=== PATIENT | male | born 1950 | race Caucasian/White ===

== ENCOUNTER → 2017-04-24 10:29 | Outpatient (CLI) | payer MEDICARE, OTHER | END | disposition home or self-care (01) | LOC: D.US 04-20 16:30 | DX: I65.23 Occlusion and stenosis of bilateral carotid arteries (principal) ==

== ENCOUNTER 2017-05-08 05:23 | Inpatient (IN) | payer MEDICARE, OTHER ==
[2017-05-07 11:57] LABS: HEMOGLOBIN 12.4 g/dL (13.5-17.5); MCV 90.3 fL (80.0-100.0); MEAN PLATELET VOLUME 9.6 fL (7.4-10.4); RBC 4.43 10x6/uL (4.20-6.10); RDW 16.2 % (11.5-14.5); WBC 4.7 10x3/uL (4.8-10.8)
[2017-05-07 12:05] LABS: APPEARANCE CLEAR (CLEAR); BILIRUBIN NEGATIVE (NEGATIVE); COLOR STRAW (YELLOW); GLUCOSE NEGATIVE (NEGATIVE); KETONE NEGATIVE (NEGATIVE); NITRITE NEGATIVE (NEGATIVE); PROTEIN NEGATIVE (NEGATIVE); UROBILINOGEN NORMAL (NORMAL)
[2017-05-07 12:08] LABS: APTT 26.8 SECONDS (22.8-39.4); INR 0.95 (0.85-1.17); PROTIME 12.5 SECONDS (11.6-15.0)
[2017-05-07 12:12] LABS: ALBUMIN 3.5 g/dL (3.4-5.0); BILIRUBIN - TOTAL 0.27 mg/dL (0.2-1.3); CALCIUM 9.1 mg/dL (8.5-10.1); CREATININE - SERUM 1.4 mg/dL (0.6-1.3); PROTEIN - SERUM 7.8 g/dL (6.4-8.2)
[2017-05-08] VITALS (40 sets, daily range): BP systolic 96–182; BP diastolic 41–87; BMI 24.0; BMI 27.2
[~2017-05-08 05:23] MED LIST: BYSTOLIC20 MG PO; KLONOPIN1 MG PO; NORVASC10 MG PO
--- NOTE | 2017-05-08 11:31 | NUR ---
PT ARRIVED BY BED FROM OR. SWITCHED TO ICU MONITORS. PT ON 10L SIMPLE MASK. C/O LEFT SIDE PAIN. DR. PERRY AT BEDSIDE. REPORTS EPIDURAL NOT IN PROPER SPOT. WILL REPLACE. BILATERAL SCDS/TEDS IN PLACE. PT ON AIR OVERLAY MATTRESS. RIGHT RADIAL A-LINE ZERO'D WITH GOOD WAVEFORM. LEFT CT X2 TO 20CM SUCTION. NO AIR LEAK NOTED AT THIS TIME. YOUSIF CATH IN PLACE. CRITICOR TEMP 35.1. BARIHUGGER PLACED ON PT AND ON.
--- NOTE | 2017-05-08 11:37 | HP ---
PATIENT: ARMIDA LINDA MEDICAL RECORD: [id number] ACCOUNT: [id number] LOCATION:[facility]05 : 50 ADMISSION DATE: 05/08/17 HISTORY AND PHYSICAL EXAMINATION ARMIDA Bates (66yo, M) ID# [id number]. Date/Time04/20/2017 01:30RNTQW77/05/1951Service Dept.NPP_[facility] ClinicProviderEDPANCHO EASON MDInsuranceMed Primary: [place] Insurance # : [id number] Employer Name : RETIRED Med Secondary: FOR LIFE ( - MEDICARE SUPPLEMENT) Insurance # : [id number] Employer Name : RETIRED Prescription: ESI1 - Member is eligible. Chief Complaint Lung cancer JATINDER lung lesion Patient's Care Team Referring Provider: CARRI KAHN MD: [address] [place] [address], , Sales Recruiter: Josef WESTON MD: [address], [place] [address], , Primary Care Provider: MCKENZIE BAY MD: [address] [address], , Vitals BP:150/70 sitting L arm 04/20/2017 01:25 pmHR:60R/R 04/20/2017 01:25 pmHt:5 ft 8 in 04/20/2017 01:25 pmWt:143 lbs 04/20/2017 01:23 pmBMI:21.7 04/20/2017 01:25 pmAllergies Reviewed Allergies NKDAMedications Reviewed Medications amLODIPine 10 mg giqteu27/22/17 filledMEDCOamLODIPine 5 mg akeytn10/29/17 filledMEDCOamoxicillin 500 mg xdxhosg08/29/16 filledMEDCOAzor 5 mg-40 mg ilvdhg82/04/17 filledMEDCObenazepril 40 mg blkvhi33/22/17 filledMEDCOBenicar 40 mg czdycw46/06/17 filledMEDCOBystolic 20 mg ilsacf30/24/17 filledMEDCOcitalopram 20 mg unbzlj07/10/17 filledMEDCOclonazePAM 1 mg /31/17 filledMEDCOcloNIDine 0.1 mg/24 hr weekly transdermal patch01/29/17 filledMEDCOcloNIDine HCl 0.1 mg /15/17 filledMEDCOEnstilar 0.005 %-0.064 % topical foam01/15/17 filledMEDCOEry-Tab 250 mg tablet,delayed /27/17 filledMEDCOfinasteride 5 mg ztskyb10/20/17 filledMEDCOfluocinonide 0.05 % topical cream03/29/17 filledMEDCOfolic acid 1 mg qzovuz25/01/17 filledMEDCOhydroCHLOROthiazide 12.5 mg getjks21/13/17 filledMEDCOhydroCHLOROthiazid e 25 mg nmwsvi83/22/17 filledMEDCOHYDROcodone 5 mg-acetaminophen 325 mg uxfkos97/29/16 filledMEDCOhydrOXYzine HCl 10 mg /01/17 filledMEDCOhydrOXYzine HCl 50 mg ogcjxd64/31/17 filledMEDCOketoconazole 2 % topical cream10/10/16 filledMEDCOmetFORMIN 500 mg /30/17 filledMEDCOmetHOTREXate sodium 2.5 mg knkuga41/01/17 filledMEDCOomeprazole 20 mg capsule,delayed lluufyy13/06/17 filledMEDCOpravastatin 40 mg vgtnyj93/13/17 filledMEDCOpredniSONE 20 mg /06/17 filledMEDCOtamsulosin 0.4 mg pkmurfn84/20/17 filledMEDCOtriamcinolone acetonide 0.1 % topical cream02/21/17 filledMEDCOZetia 10 mg wuoqzb60/06/17 filledMEDCOProblems Reviewed Problems Carcinoma of lung - Onset: 04/18/2017 Family History HISTORY AND PHYSICAL [id number] ARMIDA LINDA Discussed Family History Social History Discussed Social History Cardiology Smoking Status: Former smoker High Cholesterol: Y High blood pressure: Y Is blood transfusion acceptable in an emergency?: Y Surgical History Reviewed Surgical History Past Medical History Discussed Past Medical History Cancer: Y Chest Pain: Y Hypertension: Y Kidney Disease: Y Kidney Failure: Y Documents for Discussion N/A Screening None recorded. HPI Dyspnea Reported by patient. Associated Symptoms: no chest pain; no palpitations; no orthopnea; no PND; no fever; no chills; no wheezing; no dietary indiscretion; no sputum production; no hemoptysis; no weight gain; no dyspepsia adenocarcinoma left upper lobe stage 2A ROS Patient reports weight loss (40 lbs) and exercise intolerance but reports no fever, no night sweats, and no significant weight gain. He reports no incontinence, no difficulty urinating, no hematuria, and no increased frequency; history of renal failure. He reports no dry eyes, no irritation, and no vision change. He reports no difficulty hearing and no ear pain. He reports no frequent nosebleeds and no nose/sinus problems. He reports no sore throat, no bleeding gums, no s noring, no dry mouth, no mouth ulcers, no oral abnormalities, and no teeth problems. He reports no jugular vein distension and no swollen glands. He reports no chest pain, no arm pain on exertion, no shortness of breath when walking, no shortness of breat h when lying down, no palpitations, and no known heart murmur. He reports no cough, no wheezing, no shortness of breath, and no coughing up blood. He reports no abdominal pain, no vomiting, normal appetite, no diarrhea, not vomiting blood, no nausea, and n o constipation. He reports no muscle aches, no muscle weakness, no arthralgias/joint pain, no back pain, and no swelling in the extremities. He reports no abnormal mole, no jaundice, and no rashes. He reports no loss of consciousness, no weakness, no numbn e ss, no seizures, no dizziness, and no headaches. He reports no depression, no sleep disturbances, feeling safe in relationship, and no alcohol abuse. He reports no fatigue. He reports no swollen glands and no bruising. He reports no runny nose, no sinus p ressure, no itching, no hives, and no frequent sneezing. ROS as noted in the HPI Physical Exam Patient is a 66-year-old male. HISTORY AND PHYSICAL [id number] ARMIDA LINDA Constitutional: General Appearance healthy-appearing and thin. Level of Distress NAD. Ambulation ambulating normally. Cardiovascular: Apical Impulse not displaced or no thrill. Heart Auscultation normal s1 and s2; no murmurs, rubs, or gallops; and RRR. Arterial Pulses no abdominal aorta bruits, femoral bruits, or popliteal bruits and 2+ bilateral, carotid 2+ bilateral, femoral 2+ b ilateral, popliteal 2+ bilateral, and dorsalis pedis 2+ bilateral. Edema no edema or varicosities. Lungs: Repiratory Effort no dyspnea. Percussion no hyperresonance or dullness or flatness. Auscultation no wheezing, rhonchi, or rales / crackles and breathing sounds normal, good air movement, and CTA except as noted. Abdomen: Bowl Sounds normal. Inspection and Palpation no tenderness, guarding, masses, or rebound tenderness and soft and non-distended. Liver non-tender and no hepatomegaly. Spleen non-tender and no splenomegaly. Hernia none palpable. Musculoskeletal System: Gait And Stance normal gait and stance. Digits and Nails normal nails and no cyanosis. Neurologic: Cranial Nerves grossly intact. Reflexes DTRs 2+ bilaterally throughout. Sensation grossly intact. Lymph Nodes: Lymph Nodes no cervical LAD, supraclavicular LAD, axillary LAD, or inguinal LAD. Eyes: Lids and Conjunctivae no discharge or pallor and non-injected. Pupils PERRLA. Cornea grossly intact. EOM EOMI. Lens clear. Sclerae non-icteric. Neck: Neck no masses, enlarged lymph nodes, or carotid bruits and supple and trachea midline. Thyroid no enlargement or nodules and non-tender. Skin: Inspection and Palpation no rash, lesions, ulcers, jaundice, or abnormal nevi. Assessment / Plan carcinoma left upper lobe 1. Carcinoma of lung C34.12: Malignant neoplasm of upper lobe, left bronchus or lung Discussion Notes carcinoma left upper lobe he would benefit from resection. I have discussed his disease process with him and his and his daught er in detail as well as the alternative methods of treatment we discussed left upper lobe resection as well as partial left lower lobe resection and mediastinal lymphadenectomy including the expected benefits and risk which included bleeding, infection, s troke, , and the imponderables. He understands all of the above and wishes to proceed with planned surgery this week ago. HISTORY AND PHYSICAL [id number] ARMIDA LINDA EDWARD MD at 1137 CC: [id number] DICTATION DATE: 04/20/17 1315 ACCOUNT DEVELOPMENT SPECIALIST: HARVEY 04/25/17 1453 ADM IN [facility] [address] [id number]
--- NOTE | 2017-05-08 11:37 | HP ---
PATIENT: ARMIDA LINDA MEDICAL RECORD: [id number] ACCOUNT: [id number] LOCATION:[facility]05 : 50 ADMISSION DATE: 05/08/17 HISTORY AND PHYSICAL EXAMINATION ARMIDA Bates (66yo, M) ID# [id number]. Date/Time05/07/2017 12:[id number] 1950ervice Dept.NPP_[place] [facility] ClinicProviderEDPANCHO EASON MDInsuranceMed Primary: [place] Insurance # : [id number] Employer Name : RETIRED Med Secondary: FOR LIFE ( - MEDICARE SUPPLEMENT) Insurance # : [id number] Employer Name : RETIRED Prescription: ESI1 - Member is eligible. Chief Complaint Followup: Carcinoma of lung Left pulmonary resection pre op visit Patient's Care Team Referring Provider: CARRI KAHN MD: [address] [place] [address], , Food Selector: Josef WESTON MD: [address] [address], , Primary Care Provider: MCKENZIE BAY MD: [address] [address], , Vitals BP:170/80 sitting R arm 05/07/2017 12:18 pmHR:60R/R 05/07/2017 12:18 pmHt:5 ft 8 in 05/07/2017 12:15 pmWt:143 lbs 05/07/2017 12:17 pmBMI:21.7 05/07/2017 12:17 pmAllergies Reviewed Allergies NKDAMedications Reviewed Medications amLODIPine 10 mg exzjfe72/27/17 filledMEDCOamLODIPine 5 mg vomtgh08/29/17 filledMEDCOamoxicillin 500 mg zqsktge05/29/16 filledMEDCOAzor 5 mg-40 mg xmbeua40/04/17 filledMEDCObenazepril 40 mg gpkpyk52/22/17 filledMEDCOBenicar 40 mg pkroml72/06/17 filledMEDCOBystolic 20 mg /24/17 filledMEDCOcitalopram 20 mg sabqrq81/10/17 filledMEDCOclonazePAM 1 mg pcrocv64/27/17 filledMEDCOcloNIDine 0.1 mg/24 hr weekly transdermal patch01/29/17 filledMEDCOcloNIDine HCl 0.1 mg /15/17 filledMEDCOEnstilar 0.005 %-0.064 % topical foam01/15/17 filledMEDCOEry-Tab 250 mg tablet,delayed jyhhzwt38/27/17 filledMEDCOfinasteride 5 mg hriopz34/20/17 filledMEDCOfluocinonide 0.05 % topical cream03/29/17 filledMEDCOfolic acid 1 mg xxcryu33/01/17 filledMEDCOhydroCHLOROthiazide 12.5 mg ulpagx20/13/17 filledMEDCOhydroCHLOROthiazid e 25 mg /22/17 filledMEDCOHYDROcodone 5 mg-acetaminophen 325 mg ytkcti89/29/16 filledMEDCOhydrOXYzine HCl 10 mg /01/17 filledMEDCOhydrOXYzine HCl 50 mg lafjtw24/31/17 filledMEDCOketoconazole 2 % topical cream10/10/16 filledMEDCOmetFORMIN 500 mg tysoan75/30/17 filledMEDCOmetHOTREXate sodium 2.5 mg xnfbdi61/01/17 filledMEDCOomeprazole 20 mg capsule,delayed eemxxho82/06/17 filledMEDCOpravastatin 40 mg redsao93/13/17 filledMEDCOpredniSONE 20 mg /06/17 filledMEDCOtamsulosin 0.4 mg /20/17 filledMEDCOtriamcinolone acetonide 0.1 % topical cream02/21/17 filledMEDCOZetia 10 mg hscynl62/06/17 filledMEDCOProblems Reviewed Problems Carcinoma of lung - Onset: 04/18/2017 Family History HISTORY AND PHYSICAL [id number] ARMIDA LINDA Discussed Family History Social History Discussed Social History Cardiology Smoking Status: Former smoker High Cholesterol: Y High blood pressure: Y Is blood transfusion acceptable in an emergency?: Y Surgical History Reviewed Surgical History Past Medical History Discussed Past Medical History Cancer: Y Chest Pain: Y Hypertension: Y Kidney Disease: Y Kidney Failure: Y Documents for Discussion N/A Screening None recorded. HPI Dyspnea Reported by patient. Associated Symptoms: no chest pain; no palpitations; no orthopnea; no PND; no fever; no chills; no wheezing; no dietary indiscretion; no sputum production; no hemoptysis; no weight gain; no dyspepsia carcinoma left upper lobe ROS Patient reports weight loss (40 lbs) and exercise intolerance but reports no fever, no night sweats, and no significant weight gain. He reports no incontinence, no difficulty urinating, no hematuria, and no increased frequency; history of renal failure. He reports no dry eyes, no irritation, and no vision change. He reports no difficulty hearing and no ear pain. He reports no frequent nosebleeds and no nose/sinus problems. He reports no sore throat, no bleeding gums, no snoring, no dry mouth, no mouth ulcers, no oral abnormalities, and no teeth problems. He reports no jugular vein distension and no swollen glands. He reports no chest pain, no arm pain on exertion, no shortness of breath when walking, no shortness of breath when lying d o wn, no palpitations, and no known heart murmur. He reports no cough, no wheezing, no shortness of breath, and no coughing up blood. He reports no abdominal pain, no vomiting, normal appetite, no diarrhea, not vomiting blood, no nausea, and no constipation . He reports no muscle aches, no muscle weakness, no arthralgias/joint pain, no back pain, and no swelling in the extremities. He reports no abnormal mole, no jaundice, and no rashes. He reports no loss of consciousness, no weakness, no numbness, no seizur e s, no dizziness, and no headaches. He reports no depression, no sleep disturbances, feeling safe in relationship, and no alcohol abuse. He reports no fatigue. He reports no swollen glands and no bruising. He reports no runny nose, no sinus pressure, no it neva, no hives, and no frequent sneezing. ROS as noted in the HPI Physical Exam Patient is a 66-year-old male. HISTORY AND PHYSICAL [id number] ARMIDA LINDA Constitutional: General Appearance healthy-appearing and thin. Level of Distress NAD. Ambulation ambulating normally. Cardiovascular: Apical I mpulse not displaced or no thrill. Heart Auscultation normal s1 and s2; no murmurs, rubs, or gallops; and RRR. Arterial Pulses no abdominal aorta bruits, femoral bruits, or popliteal bruits and 2+ bilateral, carotid 2+ bilateral, femoral 2+ bilateral, pop liteal 2+ bilateral, and dorsalis pedis 2+ bilateral. Edema no edema or varicosities. Lungs: Repiratory Effort no dyspnea. Percussion no hyperresonance or dullness or flatness. Auscultation no wheezing, rhonchi, or rales / crackles and breathing sounds normal, good air movement, and CTA except as noted. Abdomen: Bowl Sounds normal. Inspection and Palpation no tenderness, guarding, masses, or rebound tenderness and soft and non-distended. Liver non-tender and no hepatomegaly. Spleen non-tender and no splenomegaly. Hernia none palpable. Musculoskeletal System: Gait And Stance normal gait and stance. Digits and Nails normal nails and no cyanosis. Neurologic: Cranial Nerves grossly intact. Reflexes DTRs 2+ bilaterally throughout. Sensation grossly intact. Lymph Nodes: Lymph Nodes no cervical LAD, supraclavicular LAD, axillary LAD, or inguinal LAD. Eyes: Lids and Conjunctivae no discharge or pallor and non-injected. Pupils PERRLA. Cornea grossly intact. EOM EOMI. Lens clear. Sclerae non-icteric. Neck: Neck no masses, enlarged lymph nodes, or carotid bruits and supple and trachea midline. Thyroid no enlargement or nodules and non-tender. Skin: Inspection and Palpation no rash, lesions, ulcers, jaundice, or abnormal nevi. Assessment / Plan carcinoma left upper lobe 1. Carcinoma of lung C34.90: Malignant neoplasm of unspecified part of unspecified bronchus or lung Discussion Notes I have discussed the patient's disease process with him and his in detail as well as the alternative methods of treatmen t. We discussed left pulmonary resection and the expected benefits and risk which include bleeding, infection, stroke, , and the imponderables. He understands all of the above and wishes to proceed with planned surgery tomorrow. HISTORY AND PHYSICAL [id number] ARMIDA LINDA, JOHNNIE SARAH at 1137 CC: [id number] DICTATION DATE: 05/07/17 1200 RICE MILLING SUPERVISOR: HARVEY 05/07/17 1245 ADM IN [facility] [address] [id number]
--- NOTE | 2017-05-08 11:45 | NUR ---
DR. EASON UPDATED PT'S FAMILY.
--- NOTE | 2017-05-08 12:00 | NUR ---
RADIOLOGY AT BEDSIDE FOR PORT CXR.
--- NOTE | 2017-05-08 12:19 | NUR ---
DR. PERRY AT BEDSIDE. EPIDURAL REPLACED. PT TOLERATED WELL. BOLUS GIVEN BY DR. PERRY. EPIDURAL SECURED WITH TAPE BY DR. PERRY. PT ASSISTED BACK INTO BED.
--- NOTE | 2017-05-08 12:49 | NUR ---
FAMILY AT BEDSIDE. UPDATED ON PT'S STATUS. PT REPORTS THAT HIS PAIN IS IMPROVING.
--- NOTE | 2017-05-08 14:40 | NUR ---
PT DENIES PAIN AT THIS TIME. RESTING COMFORTABLY
--- NOTE | 2017-05-08 14:53 | NUR ---
NOTIFIED SUNITA CHO RN OF DEC URINE OUTPUT. PT HAS HX OF STAGE II KIDNEY DISEASE. K+ 6.6 ON ABG RESULTS. BMP DRAWN AND SENT DOWN TO LAB.
[2017-05-08 15:11] LABS: ANION GAP 13.8 mmol/L (8-16); CALCIUM 7.9 mg/dL (8.5-10.1); CARBON DIOXIDE 19.3 mmol/L (21.0-32.0)
[2017-05-08 15:15] LABS: CREATININE - SERUM 1.8 mg/dL (0.6-1.3)
[2017-05-08 15:17] LABS: POTASSIUM - SERUM 7.1 mmol/L (3.5-5.1)
--- NOTE | 2017-05-08 15:31 | NUR ---
CHANGED FROM PLASMALYTE IVF TO NS AT 30CC/HR. SUNITA CHO RN NOTIFIED OF UPDATED LABS.
--- NOTE | 2017-05-08 17:48 | NUR ---
DR. EASON NOTIFIED OF CRITICAL K+ OF 6.9. ORDERS RECEIVED.
--- NOTE | 2017-05-08 18:00 | NUR ---
SPOKE WITH DR. HERNANDEZ REGARDING CONSULT. DISCUSSED LABS AND VITAL SIGNS. ORDERS RECEIVED.
--- NOTE | 2017-05-08 19:00 | NUR ---
REC'D TO CARE, DR. HERNANDEZ AT BS. GROUP COUNSELOR PER FLOWSHEET. PT AWAKE AND ORIENTED. L CHEST INCISION AND CTS NOTED. REPORTS ADEQUATE PAIN RELIEF WITH EPIDURAL - SEE FLOWSHEET. ARPIT THAKKAR ON. IVFS INFUSING TO L DLSC, DSG C/D/I - SEE FLOWSHEET. CRITICORE BENJA PATENT. AIR OVERLAY IN USE. ALARMS ON AND C/L IN REACH.
--- NOTE | 2017-05-08 20:30 | NUR ---
DR. HERNANDEZ AND DR. EASON NOTIFIED OF [facility]+. NEW ORDERS REC'D.
--- NOTE | 2017-05-08 20:40 | NUR ---
ADMIN REG INSULIN AND D50 IV PER MD ORDERS. PT TURNED TO R SIDE, GOOD DB & C. PT COOPERATIVE, GIVEN SWABS FOR ORAL CARE. ALARMS ON AND C/L IN REACH.
--- NOTE | 2017-05-08 21:20 | NUR ---
NO VISITORS, RESTING QUIETLY, VSS
--- NOTE | 2017-05-08 23:26 | NUR ---
ABGS RESULTED, K+ 5.8 - D50 AND REG INSULIN IV REPEATED PER MD ORDER - SEE MAR. REASSESSMENT PER FLOWSHEET, NO ACUTE CHANGES. PT WITH SLIGHT CONFUSION TO TIME/SITUATION - EASILY REORIENTED. VSS. DENIES PAIN. CONT SWABS FOR ORAL CARE. C/L IN REACH. ALARMS ON.
[2017-05-09] VITALS (90 sets, daily range): BP systolic 116–170; BP diastolic 51–92; BMI 27.1
--- NOTE | 2017-05-09 01:50 | NUR ---
NITRO GTT INITIATED PER MD ORDERS. PT DENIES PAIN.
--- NOTE | 2017-05-09 03:15 | NUR ---
ABGS RESULTED K+ 4.8, REASSESSMENT PER FLOWSHEET, NO ACUTE CHANGES. PT LESS CONFUSED, COOPERATIVE. PULLING 1500 ON I.S. WITH GOOD COUGH.
[2017-05-09 06:05] LABS: HEMATOCRIT 32.7 % (42.0-54.0); HEMOGLOBIN 10.2 g/dL (13.5-17.5); MCH 28.5 pg (26.0-34.0); MCHC 31.2 g/dL (31.0-37.0); MCV 91.3 fL (80.0-100.0); MEAN PLATELET VOLUME 9.5 fL (7.4-10.4); RBC 3.58 10x6/uL (4.20-6.10); RDW 16.5 % (11.5-14.5)
[2017-05-09 06:09] LABS: WBC 7.4 10x3/uL (4.8-10.8)
[2017-05-09 06:34] LABS: ALBUMIN 2.7 g/dL (3.4-5.0); BILIRUBIN - TOTAL 0.32 mg/dL (0.2-1.3); CALCIUM 7.9 mg/dL (8.5-10.1); CARBON DIOXIDE 19.6 mmol/L (21.0-32.0); CREATININE - SERUM 1.8 mg/dL (0.6-1.3); PROTEIN - SERUM 6.1 g/dL (6.4-8.2)
[2017-05-09 06:35] LABS: ANION GAP 15.3 mmol/L (8-16); POTASSIUM - SERUM 4.9 mmol/L (3.5-5.1)
--- NOTE | 2017-05-09 07:20 | NUR ---
RECEIVED PT FOR CARE. PT RESTING IN BED WITH EYES OPEN. CALL LIGHT WITHIN REACH. ASSESSMENT COMPLETED. REPOSITIONED FOR COMFORT.
--- NOTE | 2017-05-09 08:07 | NUR ---
DR. EASON AT BEDSIDE. UPDATED ON PT'S STATUS.
--- NOTE | 2017-05-09 10:30 | NUR ---
PT WATCHING TELEVISION. NO NEEDS AT THIS TIME. PULLING 2000 ON INCENTIVE SPIROMETER.
--- NOTE | 2017-05-09 12:45 | NUR ---
PT RESTING IN BED WITH EYES CLOSED. RESP EQUAL AND UNLABORED. CALL LIGHT AND EPIDURAL ATTENDANT SELF SERVICE [employer] WITHIN REACH.
--- NOTE | 2017-05-09 15:24 | NUR ---
NOTIFIED DR. EASON OF PT'S INCREASE IN AGGITATION. PULLING AT IV LINES AND ALL TUBING. NOT COOPERATIVE. KEEPS ASKING TO GET OUT OF BED. UNABLE TO REORIENT PT TO SITUATION.
--- NOTE | 2017-05-09 15:40 | NUR ---
HALDOL GIVEN ORDERED. PT CONTINUES TO PULL AT LINES/TUBING. CALLED AND NOTIFIED PT'S OF INCREASED AGGIATATION AND CONFUSION. SHE VOICED UNDERSTANDING. SHE IS UNABLE TO COME AND VISIT UNTIL TOMORROW MORNING AT 9. SHE STATES SHE WILL CALL HIM ON HIS CELL PHONE.
--- NOTE | 2017-05-09 16:25 | NUR ---
PT MUCH MORE CALM AND COOPERATIVE. STATES "I SPOKE WITH MY AND SHE AGREES WITH YOU". VSS AT THIS TIME. WILL CONTINUE TO MONITOR.
--- NOTE | 2017-05-09 18:07 | NUR ---
PT SITTING UP IN BED EATING SUPPER TRAY. TOLERATING WELL.
--- NOTE | 2017-05-09 19:30 | NUR ---
REPORT REC'D AND CARE ASSUMED, REC'D PT ON O2 @ 2LITERS RESTING IN BED EYES CLOSED, AWAKENS TO VERBAL STIMULI, ORIENTED TO PERSON AND PLACE ONLY, CM-ST 106, LDLSCL DRSG CDI WITH D5NS @ 75CC/HR AND NITROGLYCERIN @ 10CC/HR OR 0.463MCG/KG/MIN, RIGHT RADIAL DONNY WITH FLEXION BOARD, LINES LEVELED AND ZEROED WITH RETURN OF APPROPRIATE WAVEFORM, LEFT LATERAL DRSG CDI, LEFT LATERAL CT'S X 2 TO 20CM H2O SUCTION, SEROUS DRAINAGE NOTED, NO AIR LEAK NOTED, EPIDURAL TAPED SECURELY TO BACK INFUSING @ 6CC/HR WITH 3CC Q15MIN BOLUS FOR BREAKTHROUGH PAIN, CRITICORE YOUSIF PATENT DRAINING CLEAR YELLOW URINE, TEDS AND SCDS OFF FOR BREAK, AIR OVERLAY MATTERSS IN USE, SR UP X 2, VISIBLE TO NURSES STATION.
--- NOTE | 2017-05-09 20:00 | NUR ---
DR. PERRY AT , DECREASED EPIDURAL RATE TO 4CC/HR WITH 3CC Q15MIN BOLUS AVAILABLE, PT PULLING OXYGEN AND OTHER MONITORING EQUIPMENT OFF, ATTEMPTED TO REORIENT TO SITUATION, STATES " I DON'T THINK I NEED TO GO THERE TONIGHT", REQUESTED PT NOT PULL AT EQUIPMENT, STATES "OKAY".
--- NOTE | 2017-05-09 20:40 | NUR ---
PT ATTEMPTING TO GET OOB, EXPLAINED TO PT THAT HE COULD NOT GET OOB AND WHY, REMINDED OF CURRENT SITUATION, ATTEMPTING TO PULL AT YOUSIF AND CT TUBING, MOVED LINES FROM PT'S REACH, NURSE POSITIONED OUTSIDE OF ROOM.
--- NOTE | 2017-05-09 23:05 | NUR ---
REASSESSMENT COMPLETED, PT REMAINS CONFUSED, DOZING AT INTERVALS, COUGHING AND DEEP BREATHING COMPLETED, PT PULLING 1500 ON IS, PRODUCTIVE COUGH OF WHITE SPUTUM, WILL CONTINUE TO MONITOR FOR CHANGES.
--- NOTE | 2017-05-09 23:30 | NUR ---
PT ATTEMPTING TO GET OOB, ARGUMENTATIVE AND UNCOOPERATIVE PULLING AT EQUIPMENT, STATING " I WANT OUT OF THIS BED", ATTEMPTED TO EXPLAIN TO PT THE REASON FOR NOT GETTING OOB AT THIS TIME, 5MG HALDOL GIVEN SLOW IVP FOR AGITATION.
[2017-05-10] VITALS (73 sets, daily range): BP systolic 111–176; BP diastolic 58–95
--- NOTE | 2017-05-10 00:19 | NUR ---
PT ATTEMPTING TO GET OOB, WANTING HIS UNDERWEAR, EXPLAINED TO PT WHY HE DID NOT HAVE UNDERWEAR, STATES " I HAVE THEM HERE SOMEWHERE GIVE THEM TO ME NOW", UNDERWEAR PROVIDED, EXPLAINED TO PT HE COULD NOT GET OOB TO PUT THEM ON, STATES " YOUR GIVING ME A BUNCH OF BULL DON'T TELL ME WHAT I CAN DO LADY!", ASSISTED PT TO PLACE UNDERWEAR, LINENS STRAIGHTENED, PT REQUESTING SOCKS, SCDS AND TEDS REAPPLIED, PT CALMER AT THIS TIME, REMOTE CONTROL PROVIDED FOR DIVERSION, WILL REMAIN OUTSIDE DOOR FOR CLOSER MONITORING.
--- NOTE | 2017-05-10 02:00 | NUR ---
PT RESTING IN BED EYES CLOSED, RESP EVEN AND UNLABORED, VSS, WILL CONT TO MONITOR FOR CHANGES
--- NOTE | 2017-05-10 03:15 | NUR ---
RT AT BS FOR BREATHING TX, IS DONE AFTERWARD, PT INHALING SHORT FAST BREATHS REQUIRES INSTRUCTION ON IS USAGE EACH TIME, PT ATTEMPTS TO BREATH TOO QUICKLY PT REDIRECTED AND PULLING [phone]
--- NOTE | 2017-05-10 03:40 | NUR ---
RADIOLOGY @ BS FOR AM CXR
--- NOTE | 2017-05-10 04:30 | NUR ---
LDLSCL DRSG CHANGED DUE TO DRSG LIFTING, PT TOLERATED WELL, PT STATES " I AM CONFUSED IS THIS HOSPICE IT LOOKS LIKE A HOUSE BUT IT'S A HOSPITAL", EXPLAINED TO PT THAT HE WAS IN CVICU AFTER HIS SURGERY, PT VERBALIZES UNDERSTANDING, PT MORE AGREEABLE THIS MORNING.
--- NOTE | 2017-05-10 05:13 | NUR ---
RT AT BS FOR CONSTANZA
--- NOTE | 2017-05-10 05:14 | NUR ---
RT AT BS FOR AM ABG, PT PROVIDED ICE WATER ON REQUEST, DENIES FURTHER NEEDS.
--- NOTE | 2017-05-10 05:45 | NUR ---
PT REPOSITIONED UP IN BED AND ONTO RIGHT SIDE SUPPORTED WITH PILLOWS, VSS.
[2017-05-10 05:53] LABS: HEMATOCRIT 29.2 % (42.0-54.0); HEMOGLOBIN 9.1 g/dL (13.5-17.5); MCH 28.5 pg (26.0-34.0); MCHC 31.2 g/dL (31.0-37.0); MCV 91.5 fL (80.0-100.0); MEAN PLATELET VOLUME 9.3 fL (7.4-10.4); RBC 3.19 10x6/uL (4.20-6.10); RDW 16.4 % (11.5-14.5); WBC 6.5 10x3/uL (4.8-10.8)
[2017-05-10 06:33] LABS: ALBUMIN 2.5 g/dL (3.4-5.0); ANION GAP 12.8 mmol/L (8-16); BILIRUBIN - TOTAL 0.28 mg/dL (0.2-1.3); CALCIUM 7.6 mg/dL (8.5-10.1); CARBON DIOXIDE 19.2 mmol/L (21.0-32.0); CREATININE - SERUM 1.6 mg/dL (0.6-1.3); PROTEIN - SERUM 5.7 g/dL (6.4-8.2)
--- NOTE | 2017-05-10 07:00 | NUR ---
ASSESSMENT PER FLOWSHEET. VOICES NO CO AT TIME. SR UP X 2.
--- NOTE | 2017-05-10 08:00 | NUR ---
SITTING UP IN BED EATING BREAKFAST NO CO AT TIME.
--- NOTE | 2017-05-10 09:30 | NUR ---
DONNY EDOUARD. BP MEASURED WITH NIBP.
--- NOTE | 2017-05-10 12:00 | NUR ---
EATING LUNCH NO CO AT TIME.
--- NOTE | 2017-05-10 15:00 | NUR ---
VISITING WITH FRIEND. VOICES NO CO AT TIME.
--- NOTE | 2017-05-10 17:00 | NUR ---
EATING SUPPER NO CO AT TIME.
--- NOTE | 2017-05-10 18:00 | NUR ---
VISITING WITH FRIENDS. VOICES NO CO AT TIME.
--- NOTE | 2017-05-10 19:00 | NUR ---
Received patient resting in bed with eyes open watching TV, assessment completed per flowsheet. Patient AO x4, calm and cooperative. Eyes PERRLA @ 4mm with brisk response, sclera is white. S1/S2 noted NSR with HR 91, rhythmic and regular. Breathing is even and unlabored on 3L via NC with O2 sat 97%, lung sounds clear R upper and mid with diminished L upper mid and bilateral lower. CT x2 to gravity drain with no bubbling noted in collection, dressing intact with small serous drainage noted on old pad. Abdomen is flat and soft with bowel sounds active x4, non-tender. Criticore mcguire secured, clear yellow urine noted in collection. Full ROM all extremities with slight weakness noted, all pulses palpable with cap refill < 3 sec. L subclavian CVL dressing CDI, D5W @ 30ml/hr and Nitro @ 0.463 mcg/kg/min (10ml). Epidural dressing intact, Fentanyl @ 4ml/hr continuous with 3ml Q15 lockout. Patient denies pain or other needs at this time, all VSS and will continue to monitor.
--- NOTE | 2017-05-10 21:00 | NUR ---
No visitors at this time, patient resting in bed with eyes closed. Breathing is even and unlabored on 3L via NC, O2 sat 95%. CT x2 dressing CDI, serous and serosanguinous drainage noted in collection. Patient denies pain or other needs at this time, all VSS and will continue to monitor.
--- NOTE | 2017-05-10 23:00 | NUR ---
Reassessment completed per flowsheet, patient resting in bed with eyes closed. Patient AO x4, calm and cooperative. S1/S2 noted NSR on telemetry with HR 97, rhythmic and regular. Breathing is even and unlabored on 3L via NC with O2 sat 96%, lung sounds clear R upper and mid with diminished L uppper and mid diminished bilateral lower. CT x2 L lateral chest dressing CDI, serosanguinous fluid noted in drain. All pulses palpable with cap refill < 3 sec, skin warm/dry to touch. Patient denies pain or other needs at this time, all VSS and will continue to monitor.
[2017-05-11] VITALS (56 sets, daily range): BP systolic 137–208; BP diastolic 69–99
--- NOTE | 2017-05-11 01:00 | NUR ---
Patient resting in bed with eyes open, water provided upon request. Education provided on cough/deep breathing and splinting. Patient returned demonstration, no other needs at this time.
--- NOTE | 2017-05-11 03:00 | NUR ---
Reassessment completed per flowsheet, patient resting in bed with eyes closed. Patient AO x4, calm and cooperative. S1/S2 noted NSR on telemetry with HR 98, rhythmic and regular. Breathing is even and unlabored on 3L via NC with O2 sat 97%, lung sounds clear R upper and mid with diminished L upper and mid and diminished bilateral lower. CT x2 dressing CDI, serosanguinous drainage noted in drain. All pules palpable with cap refill < 3 sec, skin warm/dry to touch. Patient denies pain or other needs at this time, all VSS and will continue to monitor.
--- NOTE | 2017-05-11 05:00 | NUR ---
Pateint resting in bed with eyes open, breathing is even and unlabored on 3l via NC. ct x2 L lateral chest dressing CDI, patient denies pain or other needs at this time. All VSS and will continue to monitor
[2017-05-11 06:26] LABS: HEMATOCRIT 29.9 % (42.0-54.0); HEMOGLOBIN 9.6 g/dL (13.5-17.5); MCH 28.6 pg (26.0-34.0); MCHC 32.1 g/dL (31.0-37.0); RBC 3.36 10x6/uL (4.20-6.10); RDW 15.6 % (11.5-14.5); WBC 6.4 10x3/uL (4.8-10.8)
[2017-05-11 06:56] LABS: ALBUMIN 2.5 g/dL (3.4-5.0); ALKALINE PHOSPHATASE 60 U/L (46-116); ALT (SGPT) 15 U/L (10-68); BILIRUBIN - TOTAL 0.36 mg/dL (0.2-1.3); CALCIUM 8.5 mg/dL (8.5-10.1); CARBON DIOXIDE 20.9 mmol/L (21.0-32.0); CHLORIDE - SERUM 104 mmol/L (98-107); GLUCOSE 117 mg/dL (74-106); POTASSIUM - SERUM 4.8 mmol/L (3.5-5.1); SODIUM 132 mmol/L (136-145); eGFR NON AFRICAN AMERICAN 79 mL/min (90-120)
[2017-05-11 06:58] LABS: CALC OSMOLALITY 267 mosm/kg (275-300); UREA NITROGEN 18 mg/dL (7-18)
--- NOTE | 2017-05-11 11:53 | NUR ---
Ameya COK[facility] NOTIFIED OF NIBP AT [facility] -NTG GTT AT 5ML/H-CURRENT BP DRUG REGIMEN AND REQUEST OF CARDIOVASCULAR MD TO BE OFF NTG GTT-ORDER RECIEVED AND NOTED-SR ON MOITOR 90-ROOM AIR PER RT
--- NOTE | 2017-05-11 14:16 | NUR ---
1330-YOUSIF CATH REMOVED-L CVL SALINE LOCKED-PER [id number] SOCKS PLACED-ASSISTED TO BEDSDIE CHAIR AND DIRECTED NOT TO GET UP WITHOUT ASSISTANCE-CALL LIGHT AND URINAL PLACED AT PT EASY REACH 1410-FOUND PT OFF MONITOR-IN BATHROOM-PT CALLED BACK OK 1420-PT EMERGED FROM RESTROOM WITH ALL CLOTHING ON --REORIENTED PT TO REMAIN IN HOSPITAL AND NOT BEING DISCHARGED TODAY-AGREED TO REMOVE TOP AND PLACE HOSPITAL GOWN ON FOR INTEGRITY OF OPEN INCISION-REMAINS ON ROOM AIR-NORCO 10MG PO FROM C/O INCISIONAL PAIN
--- NOTE | 2017-05-11 14:31 | NUR ---
1430-K MARQUIS LUTZ NOTIFIED OF CURRENT NIBP- D JOHN PAUL LUTZ RE NIBP 206 SYS-DR MAYKEL WALLACE'D REQUESTED TO MANAGE SAME
--- NOTE | 2017-05-11 14:41 | NUR ---
NUTRITION F/U CHART REVIEWED. SPOKE WITH NURSING. 100% INTAKE LUNCH. STILL NO BM. NURSING AWARE. RD FOLLOWING
--- NOTE | 2017-05-11 15:16 | NUR ---
NO RETURN CALL FROM DR BRAR-
--- NOTE | 2017-05-11 15:30 | NUR ---
RETURN CALL FROM DR BRAR-
--- NOTE | 2017-05-11 19:15 | NUR ---
RECEIVED CARE OF PT, ASSESSMENT PER FLOWSHEET. PT ALERT AND ORIENTED X 4, SITTING UP IN BED IN NO APPARENT DISTRESS WATCHING TV. HR SR ON CM, BREATH SOUNDS SHALLOW WITH DIM BASES AUSCULTATED, LT LAT INCISION CALVIN, LT LAT CHEST DRESSING CDI, PPP, PULLING CLOSE TO 2250 ON IS WITH GOOD INSPIRATORY EFFORT, DENIES ANY NEEDS AT THIS TIME, CALL LIGHT IN REACH, BED LOW, BED ALARM IN USE.
--- NOTE | 2017-05-11 20:11 | NUR ---
PT C/O INCISIONAL PAIN 5/10 ON PAIN SCALE, PRN PO NORCO 10/325 MG ADMINISTERED PER MD ORDER AND PT REQUEST. WILL MONITOR FOR DESIRED EFFECT.
--- NOTE | 2017-05-11 22:57 | NUR ---
RT AT BEDSIDE FOR BREATHING TX, PRN ZOFRAN 4MG ADMINISTERED VIA SIVP PER PT REQUEST REGARDING HIS UPDRAFT TREATMENTS MAKING HIM NAUSEOUS. WILL MONITOR.
[2017-05-12] VITALS (24 sets, daily range): BP systolic 141–171; BP diastolic 51–81
--- NOTE | 2017-05-12 00:04 | NUR ---
PRN HYDRALAZINE 20MG ADMINISTERED VIA SIVP FOR ELEVATED BP.
--- NOTE | 2017-05-12 01:03 | NUR ---
PT RESTING IN BED WITH EYES CLOSED, HR 83 ON CM, SBP WITHIN PARAMETERS, CONT POC.
--- NOTE | 2017-05-12 03:15 | NUR ---
REASSESSMENT PER FLOWSHEET, NO ACUTE CHANGES NOTED. ICE WATER PROVIDED PER PT REQUEST, WILL MONITOR.
--- NOTE | 2017-05-12 04:02 | NUR ---
BACK FROM RADIOLOGY FOR AM PA AND LAT CXR, CV MONITORS RE-ESTABLISHED, ASSISTED PT TO COMFORTABLE POSITION. C/O INCISIONAL PAIN 5/10 ON PAIN SCALE, PRN PO NORCO 10/325 MG ADMINISTERED PER PT REQUEST.
--- NOTE | 2017-05-12 05:15 | NUR ---
PT RESTING IN BED WITH EYES CLOSED, NO VISITORS PRESENT AT THIS TIME, WILL CONT TO MONITOR.
[2017-05-12 06:22] LABS: HEMATOCRIT 34.9 % (42.0-54.0); HEMOGLOBIN 11.1 g/dL (13.5-17.5); MCH 27.5 pg (26.0-34.0); MCHC 31.8 g/dL (31.0-37.0); MEAN PLATELET VOLUME 9.2 fL (7.4-10.4); RBC 4.03 10x6/uL (4.20-6.10); RDW 15.4 % (11.5-14.5)
[2017-05-12 06:23] LABS: MCV 86.6 fL (80.0-100.0)
[2017-05-12 06:41] LABS: ALBUMIN 2.5 g/dL (3.4-5.0); ANION GAP 14.9 mmol/L (8-16); BILIRUBIN - TOTAL 0.45 mg/dL (0.2-1.3); CALCIUM 8.5 mg/dL (8.5-10.1); PROTEIN - SERUM 6.3 g/dL (6.4-8.2)
[2017-05-12 06:42] LABS: CREATININE - SERUM 1.3 mg/dL (0.6-1.3); POTASSIUM - SERUM 3.9 mmol/L (3.5-5.1)
--- NOTE | 2017-05-12 07:18 | NUR ---
PRN PO NORCO 10/325 MG ADMINISTERED PER PT REQUEST FOR C/O INCISIONAL PAIN 12/06. ALSO, PRN HYDRALAZINE 20 MG ADMINISTERED VIA SIVP FOR ELEVATED BP.
--- NOTE | 2017-05-12 11:44 | OP ---
PATIENT NAME: ARMIDA LINDA MEDICAL RECORD: [id number] :50 LOCATION:[facility] ADMISSION DATE:05/08/17 SURGEON: MJ MORA MD DATE OF OPERATION: 05/08/2017 SURGEON: Mj Mora MD ANESTHESIA: General. ANESTHESIOLOGIST: Braulio Kim MD OPERATIONS PERFORMED: 1. Left upper lobe resection. 2. Left mediastinal lymphadenectomy. 3. Flexible fiberoptic bronchoscopy. PREOPERATIVE DIAGNOSIS: Non-small cell carcinoma, left upper lobe. POSTOPERATIVE DIAGNOSIS: Non-small cell carcinoma, left upper lobe. INDICATION FOR OPERATION: Carcinoma, left upper lobe. FINDINGS OF THE OPERATION: There were several level 10 nodes attached to the left upper lobe dissection. There were separate resections performed; 1. Level 4 lymph node. 2. Level 5 lymph node. 3. Level 7 lymph node. 4. Level 8 lymph node. 5. Level 10 lymph node. ESTIMATED BLOOD LOSS: Less than 100 mL. The tumor was localized to the upper lobe and did not cross the fissure, although a small section of superior segment of the left lower lobe was taken with the left upper lobe. DESCRIPTION OF PROCEDURE: After informed consent and adequate preoperative medication evaluation, the patient was brought to the operating room and placed on the table in supine position. After induction of general endotracheal anesthesia and application of appropriate monitoring devices, the patient underwent flexible fiberoptic bronchoscopy and placement of a double-lumen tube. The patient was then turned in the right lateral decubitus position. Left chest was prepped and draped in sterile field utilizing Betadine scrub, alcohol, and Betadine solution. Betadine-impregnated drape was also used. A left posterolateral thoracotomy incision was made and dissection was carried down to the fascia. Hemostasis was maintained with electrocautery. The fifth interspace was opened. The lung was examined. The fissure was almost complete, but required further dissection anteriorly and posteriorly. The pulmonary artery was found in the fissure and dissected proximally and distally. The pleura was circumferentially incised around the root of the lung and the vein to the upper lobe was dissected free of surrounding structures and surrounded with a vessel loop. Vessel loops were also placed around 3 pulmonary arteries going to the upper lobe. Utilizing an Endo vascular stapler, the arteries were divided as was the superior pulmonary vein on the left. We were then able to dissect along the anterior surface of the pulmonary artery and the tumor was not OPERATIVE REPORT [id number] ARMIDA LINDA adherent to the pulmonary artery. A small portion of the superior segment of the lower lobe was resected with the tumor. Dissection was then carried down to the bronchus and the bronchus was divided utilizing an Endo-PASCUAL stapler. The chest was irrigated and tested for air leak, there was none. The patient underwent a radical left mediastinal lymphadenectomy with the above specimens. The chest was again irrigated. Instrument counts and sponge counts were correct times 2. Two #32 chest tubes were placed in left hemithorax, one anteriorly and superiorly, one posteriorly and inferiorly. Chest was again irrigated. Instrument counts and sponge counts were correct times 2. The chest was closed in layers utilizing #2 Vicryl in pericostal sutures, #1 Vicryl on the latissimus dorsi, 2-0 Vicryl on the subcutaneous tissue, and skin was approximated with 3-0 subcuticular Monocryl. Sterile dressings were applied. The patient tolerated the procedure well. The double-lumen tube was exchanged for a single-lumen tube. The patient underwent flexible fiberoptic bronchoscopy with good closure of the stump and no endobronchial blood or clots. The patient was then awakened and transferred to the ICU in critical but stable condition. TRANSINT:[id number] Voice Confirmation ID: [id number] DOCUMENT ID: [id number] MJ MORA MD at 1144 CC: [id number] DICTATION DATE: 05/08/17 1119 TUBER MACHINE CUTTER: 05/08/17 1234 ADM IN [place] [id number] [place] [address]
--- NOTE | 2017-05-12 19:10 | NUR ---
RESUMED CARE OF PT, ASSESSMENT PER FLOWSHEET. PT ALERT AND ORIENTED X 4, HR SR ON CM AT A RATE OF 77, BREATH SOUNDS DIM IN BASES, BS HYPO BUT ABD SOFT AND NONTENDER TO TOUCH. PT ABLE TO REPOSITION SELF, GOOD INSP EFFORT AND COUGH WITH IS-WILL CONT TO ENCOURGE, SKIN ASSESSMENT PER FLOWSHEET, BED LOW, CALL LIGHT IN REACH, PT DENIES ANY NEEDS AT THIS TIME.
--- NOTE | 2017-05-12 20:45 | NUR ---
HS MEDS AND PRN PO CLONIDINE ADMINISTERED FOR ELEVATED BP PER MD ORDER, WARM BLANKETS PROVIDED PER REQUEST, CALL LIGHT IN REACH, PT DENIES ANY OTHER NEEDS.
--- NOTE | 2017-05-12 22:45 | NUR ---
PRN TETRACAINE OPTHALMIC SOLUTION APPLIED TO LT EYE PER MD ORDER/PT REQUEST.
--- NOTE | 2017-05-12 23:35 | NUR ---
TO BATHROOM WITH MINIMAL ASSIST, PT VOIDED CLEAR YELLOW URINE WITHOUT DIFFICULTY, BACK TO BED, ASSISTED TO COMFORTABLE POSITION. VSS
[2017-05-13] VITALS (10 sets, daily range): BP systolic 141–169; BP diastolic 68–83
--- NOTE | 2017-05-13 01:20 | NUR ---
PT RESTING IN BED WITH EYES CLOSED, VSS, CONT TO MONITOR.
--- NOTE | 2017-05-13 03:25 | NUR ---
REASSESSMENT PER FLOWSHEET, NO ACUTE CHANGES NOTED AT THIS TIME. COMPLETE LINEN CHANGE DONE, PT ABLE TO REPOSITION SELF WITHOUT ASSISTANCE, ICE WATER PROVIDED PER REQUEST, VSS.
--- NOTE | 2017-05-13 04:33 | NUR ---
PT C/O INCISIONAL PAIN 6/10 ON PAIN SCALE, PRN PO NORCO 10/325 MG ADMINISTERED PER PT REQUEST, WILL MONITOR FOR DESIRED EFFECT, VSS.
--- NOTE | 2017-05-13 05:02 | NUR ---
PT RESTING IN BED WITH EYES CLOSED, HR SR AT A RATE OF 88, BREATHING EVEN AND UNLABORED, CONT POC.
[2017-05-13 06:21] LABS: HEMATOCRIT 32.2 % (42.0-54.0); HEMOGLOBIN 10.4 g/dL (13.5-17.5); MCH 28.2 pg (26.0-34.0); MCHC 32.3 g/dL (31.0-37.0); MCV 87.3 fL (80.0-100.0); MEAN PLATELET VOLUME 9.6 fL (7.4-10.4); RBC 3.69 10x6/uL (4.20-6.10); RDW 15.5 % (11.5-14.5)
[2017-05-13 06:22] LABS: WBC 8.6 10x3/uL (4.8-10.8)
[2017-05-13 06:41] LABS: ALBUMIN 2.5 g/dL (3.4-5.0); ANION GAP 13.3 mmol/L (8-16); BILIRUBIN - TOTAL 0.6 mg/dL (0.2-1.3); CALCIUM 8.6 mg/dL (8.5-10.1); CARBON DIOXIDE 21.9 mmol/L (21.0-32.0); CREATININE - SERUM 1.5 mg/dL (0.6-1.3); POTASSIUM - SERUM 4.2 mmol/L (3.5-5.1); PROTEIN - SERUM 5.9 g/dL (6.4-8.2)
--- NOTE | 2017-05-13 13:00 | NUR ---
DR. EASON HERE. DISCHARGE ORDERS REC'D. PATIENT STATES HE HAS A WAY TO MONITOR BP @ HOME.
[2017-05-13] MEDS ORDERED: CATAPRES-T1 PATCH.WK TRANSDERM (13:02)
[2017-05-13] MEDS ORDERED: HYDROCODONE-APA1 TAB PO (13:03)
--- NOTE | 2017-05-13 13:15 | NUR ---
L SUBCLAVIAN DC'D. SITE DRESSED WITH 4X4 AND PAPER TAPE.
--- NOTE | 2017-05-13 13:35 | NUR ---
DISCHARGED HOME. TO VEHICLE VIA . ASSISTED INTO VEHICLE. HOME WITH AND STEPDAUGHTER. DISCHARGE INSTRUCTIONS IN HAND.
== END 2017-05-13 13:35 | disposition home or self-care (01) | DRG 164 ==
LOC: D.CVICU 05:23 → D.SDCHOLD 05:23 → D.CVICU 09:11
PROVIDERS: ADMIT Internal Medicine Cardiovascular Disease
PROC: 0BTG0ZZ Resection of Left Upper Lung Lobe, Open Approach (ICD-10-PCS; principal; 2017-05-08 07:30)
PROC: 07T70ZZ Resection of Thorax Lymphatic, Open Approach (ICD-10-PCS; 2017-05-08 07:30)
DX: C34.12 Malignant neoplasm of upper lobe, left bronchus or lung (principal); N18.4 Chronic kidney disease, stage 4 (severe); N17.9 Acute kidney failure, unspecified; E87.1 Hypo-osmolality and hyponatremia; E87.2 Acidosis; E78.00 Pure hypercholesterolemia, unspecified; Z87.891 Personal history of nicotine dependence; I12.9 Hypertensive chronic kidney disease with stage 1 through stage 4 chronic kidney disease, or unspecified chronic kidney disease; L40.50 Arthropathic psoriasis, unspecified; I71.4 Abdominal aortic aneurysm, without rupture; E87.5 Hyperkalemia; K59.00 Constipation, unspecified

== ENCOUNTER → 2017-06-07 09:53 | Outpatient (CLI) | payer MEDICARE, OTHER ==
[2017-05-09 09:59] VITALS: BMI 27.1
[~2017-06-07 09:53] MED LIST changes: +CATAPRES-T1 PATCH.WK TRANSDERM; +HYDROCODONE-APA1 TAB PO
== END | disposition home or self-care (01) ==
LOC: D.RAD 09:53
DX: C34.90 Malignant neoplasm of unspecified part of unspecified bronchus or lung (principal)

== ENCOUNTER → 2018-08-21 06:36 | Outpatient (CLI) | payer MEDICARE, OTHER ==
[2017-05-09 09:59] VITALS: BMI 27.1
== END | disposition home or self-care (01) ==
LOC: D.US 08-20 14:00
DX: I71.4 Abdominal aortic aneurysm, without rupture (principal)

== ENCOUNTER → 2018-08-27 11:27 | Outpatient (CLI) | payer MEDICARE, OTHER ==
[2017-05-09 09:59] VITALS: BMI 27.1
== END | disposition home or self-care (01) ==
LOC: D.CT 11:27
DX: I71.4 Abdominal aortic aneurysm, without rupture (principal)

== ENCOUNTER → 2019-01-31 14:23 | Outpatient (CLI) | payer MEDICARE, OTHER ==
[2017-05-09 09:59] VITALS: BMI 27.1
== END | disposition home or self-care (01) ==
LOC: D.CT 10:00 → D.US 14:23
PROVIDERS: ATTEND Internal Medicine Cardiovascular Disease
DX: I71.4 Abdominal aortic aneurysm, without rupture (principal)

== ENCOUNTER 2019-09-29 05:39 | Outpatient (CLI) | payer MEDICARE, OTHER ==
[~2019-09-29] VITALS: Ht 172.7 cm; Wt 70.5 kg
--- NOTE | ~2019-09-29 | HEMODYNAMI ---
PATIENT:ARMIDA LINDA MEDICAL RECORD: [id number] : 50 [id number] ADMISSION DATE: 09/29/19 Generatedon:09/29/20199:15 Patient name: ARMIDA LINDA Patient #: [id number] SSN: : 1950 Date of study: 09/29/2019 Page: Of Hemodynamic Procedure Report Patient Data Patient Demographics Procedure consent was obtained First Name: ARMIDA Gender: Male Last Name: ALEXEI : 1950 Middle Initial: EDWARD Age: 69 year(s) Patient #: [id number] Race: Unknown Additional ID: [id number] Contact details Address: [address] [place] [address] State: [place] City: [place] Zip code: [address] Past Medical History Allergies: No known allergies Admission Admission Data Admission Date: 09/29/2019 Admission Time: 5:39 Height (in.): 68 BSA: 1.83 (m2) Height (cm.): 172.72 BMI: 23.57 (kg/m2) Weight (lbs.): 155 Weight (kg.): 70.31 Procedure Procedure Types Cath Procedure Peripheral Cath Diagnostic Procedure Cruller Maker Machine Peripheral Procedures Abd/Extremity Renal Bilat Renal Arteriogram Procedure Description Procedure Date Procedure Date: 09/29/2019 Procedure Start Time: 8:33 Procedure Staff Name Function Lexa Moyer MD Performing Physician Brigette Hernandez RT Data Services Developer Toshia Monteiro RN Nurse Miguel Hahn RT Scrub Procedure Data Cath Procedure Fluoroscopy Diagnostic fluoroscopy Total fluoroscopy Time: 0 time: 0 min min Diagnostic fluoroscopy Total fluoroscopy dose: 0 dose: 0 mGy mGy Contrast Material Contrast Material Type Amount (ml) Isovue 300 0 Procedure Medications Medication Administration Route Dosage Heparin Flush Bag added to field 3 bags (1000units/500ml NS) Lidocaine 1% added to field 20 Versed I.V. 1 mg Fentanyl I.V. 50 mcg Versed I.V. 1 mg Fentanyl I.V. 50 mcg Hydralizine I.V. 20 mg Hemodynamics Rest BSA: 1.83 (m2) O2 Consumption: Estimated: 202.67 (ml/min) O2 Consumption indexed : Estimated:110.75 (ml/min/m) Heart Rate: 56 (bpm) Snapshots Pre Cath Intra NCS Post Cath Vital Signs Time Heart Resp SPO2 etCO2 NIBP (mmHg) Rhythm Pain Sedation Rate (ipm) (%) (mmHg) Status Level (bpm) 8:17:36 58 7 98 26.1 Measuring NSR 0 (11) 10(A) , No pain 8:18:17 57 9 98 20.9 214/88(174) NSR 0 (11) 10(A) , No pain 8:23:16 62 17 98 23.1 Measuring NSR 0 (11) 10(A) , No pain 8:23:55 62 15 98 22.4 205/92(172) NSR 0 (11) 10(A) , No pain 8:28:36 57 7 98 19.4 222/86(161) NSR 0 (11) 10(A) , No pain 8:33:18 59 11 98 20.9 220/93(169) NSR 0 (11) 10(A) , No pain 8:38:01 61 11 99 18.6 227/99(186) NSR 0 (11) 10(A) , No pain 8:41:57 61 7 98 30.5 205/89(173) NSR 0 (11) 10(A) , No pain 8:46:33 63 0 98 33.5 172/81(142) NSR 0 (11) 8(A) , No pain 8:50:59 67 3 97 39.5 174/83(146) NSR 0 (11) 8(A) , No pain 8:55:28 61 0 97 32.8 183/77(141) NSR 0 (11) 8(A) , No pain 8:59:58 59 0 97 37.3 166/80(141) NSR 0 (11) 8(A) , No pain 9:04:25 61 6 97 36.5 176/82(146) NSR 0 (11) 8(A) , No pain 9:08:53 62 6 98 37.3 194/91(156) NSR 0 (11) 8(A) , No pain 9:13:25 69 5 98 35 203/90(171) NSR 0 (11) 8(A) , No pain Medications Time Medication Route Dose Verified Delivered Reason Notes Eff ectiveness by by 8:35:03 Hydralizine I.V. 20 mg Lexa Pope for Cayetano Moyer RN hypertension 8:41:47 Heparin Flush added 3 Lexa Lexa used for Bag to bags João Moyer MD procedure (1000units/500ml field NS) 8:42:03 Lidocaine 1% added 20ml Lexa Lindquist used for to vial João Moyer MD procedure field 8:42:21 Versed I.V. 1 mg Lexa Diazi used for Cayetano Moyer RN procedure 8:42:41 Fentanyl I.V. 50 Lexa Diazi used for mcg Cayetano Moyer RN procedure 8:44:55 Versed I.V. 1 mg Lexa Diazi used for Cayetano Moyer RN procedure 8:45:06 Fentanyl I.V. 50 Lexa Toshia used for mcg Cayetano Moyer RN procedure Procedure Log Time Note 7:58:08 Patient Height : 68 inches 7:58:11 Patient Weight : 155 lbs 7:58:35 Use device set IR Diagnostic 7:59:13 Micropuncture VSI 4FR kit opened to sterile field. 7:59:14 DOC .035 wire (E90829) opened to sterile field. 7:59:15 GLIDE WIRE ANGLE 260cm (RI5066) opened to sterile field. 7:59:16 TUBING Contrast Injection High Pressure (IXS418R) opened to sterile field. 7:59:17 SHEATH 5FR Jewell (BUD243) opened to sterile field. 7:59:20 Tegaderm 4 x 4 (1626W) opened to sterile field. 7:59:22 Sterile Angiographic Pack opened to sterile field. 7:59:23 Bag Decanter () opened to sterile field. 7:59:24 ACIST Manifold (31673) opened to sterile field. 7:59:25 ACIST Hand Control (42716) opened to sterile field. 7:59:26 ACIST Syringe (28451) opened to sterile field. 7:59:29 7:59:32 Time tracking: Regular hours (M-F 7:00 - 5:00) 7:59:40 Plan of Care:Hemodynamics will remain stable., Cardiac rhythm will remain stable., Comfort level will be maintained., Respiratory function will remain adequate., Patient/ family verbilizes understanding of procedure., Procedure tolerated without complication., Recovers from procedure without complications.. 7:59:50 Patient received from Outpatients to IR Alert and oriented. Tansferred to table in Supine position. 8:00:15 Signed procedure consent form obtained from patient. 8:00:25 H&P Date Dictated: 09/29/2019 Within 30 days and on chart.. 8:00:32 H&P Date Dictated: 09/29/2019 H&P Addendum completed by physician on day of procedure. (MUST COMPLETE FOR ALL OUTPATIENTS). 8:00:34 Pre-procedure instructions explained to patient. 8:00:35 Pre-op teaching completed and patient verbalized understanding. 8:00:37 Family in waiting room. 8:00:40 Patient NPO since Midnight. 8:00:51 Patient allergic to No known allergies 8:00:58 Is patient on blood thinner?No 8:01:02 Is the patient allergic to Iodine/contrast media? No. 8:01:06 8:03:41 Patient diabetic? No. 8:03:42 8:03:45 ----Pre-sedation anethsthesia assessment.---- 8:03:47 Previous problem with sedation/anesthesia? No ? 8:03:50 Snore? Yes 8:03:52 Sleep apnea? No 8:03:54 Deviated septum? No 8:03:56 Opens mouth fully? Yes 8:03:59 Sticks out tongue? Yes 8:04:02 Airway obstruction? No ? 8:04:08 Dentures? Yes out 8:04:11 8:04:16 Pre procedure: right dorsailis pedis pulse Doppler 8:04:20 Pre procedure: left dorsailis pedis pulse Doppler 8:04:24 Pre procedure: right posterior tibial pulse Doppler 8:04:28 Pre procedure: left posterior tibial pulse Doppler 8:04:44 IV patent on arrival in left hand with D5/.45%NaCl at O. 8:04:53 Left groin area was prepped with chlora-prep and draped in sterile fashion 8:04:58 Right groin area was prepped with chlora-prep and draped in sterile fashion 8:05:00 8:15:46 ECG and BP/O2 sat monitors applied to patient. 8:15:48 Vital chart was started 8:15:50 Baseline sample Acquired. 8:15:51 Full Disclosure recording started 8:15:53 8:17:59 Angiodynamics Omniflush 5Fr 65cm (82792124) opened to sterile field. 8:18:23 8:23:27 3a) 45-59 Moderately reduced kidney function. 8:24:11 Maximum allowable contrast dose (3.7 X eGFR X 0.75)127 ml. 8:32:56 Physician arrived 8:32:57 --------ALL STOP TIME OUT------ 8:32:58 Final Timeout: patient, procedure, and site verified with staff and physician. All members of the team are in agreement. 8:33:19 Fire Safety Assessment: A--An alcohol-based skin anteseptic being used preoperatively., C--Open oxygen or nitrous oxide is being used. 8:33:24 Procedure started. 8:33:30 Local anesthetic to left femerol artery with Lidocaine 1% by Lexa Moyer MD.INITIAL ACCESS ONLY 8:33:33 Arterial access obtained using ultrasound guidance. 8:35:03 Hydralizine 20 mg I.V. was administered by Toshia Monteiro RN; for hypertension; Verbal order read back and verified. 8:41:47 Heparin Flush Bag (1000units/500ml NS) 3 bags added to field was administered by Lexa Moyer MD; used for procedure; Verbal order read back and verified. 8:42:03 Lidocaine 1% 20ml vial added to field was administered by Lexa Moyer MD; used for procedure; Verbal order read back and verified. 8:42:21 Versed 1 mg I.V. was administered by Toshia Monteiro RN; used for procedure; Verbal order read back and verified. 8:42:41 Fentanyl 50 mcg I.V. was administered by Toshia Monteiro RN; used for procedure; Verbal order read back and verified. 8:44:55 Versed 1 mg I.V. was administered by Toshia Monteiro RN; used for procedure; Verbal order read back and verified. 8:45:06 Fentanyl 50 mcg I.V. was administered by Toshia Monteiro RN; used for procedure; Verbal order read back and verified. 9:09:33 case aborted due to elevatated blood pressure 9:09:40 Procedure ended.(Physican Out) 9:09:48 Fluoroscopy time 00.00 minutes. 9:09:52 Fluoroscopy dose: 0 mGy 9:09:52 Flurop Dose total: 0 9:09:57 Contrast amount:Isovue 300 0ml. 9:10:00 Procedure and supply charges have been captured, reviewed, submitted and are correct. 9:11:47 Report given to Outpatients. 9:14:37 End room use (Document Last) 9:15:00 Vital chart was stopped Device Usage Item Name Manufacture Quantity Catalog Hospital Part Current Minim al Lot# / Number Charge Number Stock Stock Serial# Code Micropuncture VSI VASCULAR 1 7266V 904162 069206 5 VSI 4FR kit SOLUTIONS DOC .035 wire Cook Medical 1 O06340 348445 263767 5 (X92114) GLIDE WIRE Terumo 1 CQ2279 187940 441647 112763 5 ANGLE 260cm (KX9230) TUBING [facility] Medical 1 ATN716I 584397 114237 906382 5 Contrast Injection High Pressure (GKT430J) SHEATH 5FR Terumo 1 THS155 991912 572728 713190 5 Jewell (OXC220) Tegaderm 4 x 3M 1 1626W 515533 484486 651101 5 4 (1626W) Sterile Cardinal 1 [id number] 002316 640037 5 Angiographic Health Pack Bag Decanter Microtek 1 2001S 465869 04537 971379 5 () Medical Inc. ACIST Acist Medical 1 93940 736844 441736 207417 5 Manifold Systems Inc (51665) ACIST Hand Acist Medical 1 39881 128284 350278 127035 5 Control Systems Inc (42297) ACIST Syringe Acist Medical 1 09449 320526 063374 137744 20 (61369) Systems Inc Angiodynamics Angiodynamics 1 [id number] 486780 463358 534289 5 Omniflush 5Fr 65cm (74307738) Signature Audit [place] Stage Time Signature Unsigned Intra-Procedure 09/29/2019 Brigette Hernandez 9:14:55 AM RT(R) [place] [id number] [facility] [place] [id number]
[2019-09-29 06:10] LABS: BASOPHILS 0.9 % (0-2); EOSINOPHILS 7.3 % (0-7); HEMATOCRIT 48.1 % (42.0-54.0); HEMOGLOBIN 16.3 g/dL (13.5-17.5); IMMATURE GRANULOCYTES 0.2 % (0-5); LYMPHOCYTES 19.3 % (15-50); MCH 28.9 pg (26.0-34.0); MCHC 33.9 g/dL (31.0-37.0); MCV 85.3 fL (80.0-100.0); MEAN PLATELET VOLUME 9.8 fL (7.4-10.4); MONOCYTES 12.5 % (2-11); NEUTROPHILS 59.8 % (40-80); RBC 5.64 10x6/uL (4.20-6.10); RDW 13.9 % (11.5-14.5); WBC 5.5 10x3/uL (4.8-10.8)
[2019-09-29 06:23] LABS: ANION GAP 11.5 mmol/L (8-16); CALCIUM 9.1 mg/dL (8.5-10.1); CARBON DIOXIDE 28.3 mmol/L (21.0-32.0); CREATININE - SERUM 1.6 mg/dL (0.6-1.3)
[2019-09-29 06:31] LABS: PLATELET COUNT 175 10x3/uL (130-400)
[2019-09-29 06:37] LABS: INR 0.96 (0.85-1.17); PROTIME 12.7 SECONDS (11.6-15.0)
[2019-09-29 06:38] LABS: APTT 36.4 SECONDS (22.8-39.4)
[2019-09-29 06:56] LABS: POTASSIUM - SERUM 2.8 mmol/L (3.5-5.1)
[2019-09-29] MEDS ORDERED: HYDROCHLOROTHIA50 MG PO (07:02)
[2019-09-29] MEDS ORDERED: VITAMIN D10000 UNI1 PO (07:03)
[2019-09-29] MEDS ORDERED: BAYER CHEWABLE81 MG PO (07:17)
[2019-09-29 07:18] VITALS: BP 212/98; BMI 23.6
--- NOTE | 2019-09-29 10:32 | NUR ---
1000 PT'S IV PUMP WAS SAYING "OCCLUDED" IN TRYING TO BREAKDOWN THE IV DRESSING, THE IV WAS DC'D. NEW IV STARTED IN RIGHT HAND WITH 20G ANGIOCATH. IV FLUIDS AND KCL RUNNING WITHOUT DIFFICULTY CURRENTLY.
--- NOTE | 2019-09-29 10:38 | NUR ---
1035 PT IS C/O KCL INFUSION BURNING EVEN AFTER TURNING IT DOWN TO 80CC/HR FROM 100CC/HR. WILL DECREASE IT TO 70CC/HR
--- NOTE | 2019-09-29 10:41 | NUR ---
1041 PT TRANSFERRING VIA STRETCHER TO ER ORDERED. REPORT HAS BEEN GIVEN TO STAFF PER DR CONKLIN
--- NOTE | 2019-09-29 11:08 | NUR ---
1046 BEDSIDE REPORT GIVEN TO DACIA IVORYRN
[2019-09-29 11:26] VITALS: Ht 172.7 cm; Wt 70.5 kg
[2019-09-29] MEDS ORDERED: NORVASC10 MG PO (15:52)
[2019-09-29] MEDS ORDERED: HYDRALAZINE HC100 MG PO (15:53)
[2019-09-30] MEDS ORDERED: PROCARDIA XL60 MG PO (14:51)
== END 2019-09-29 10:50 ==
LOC: D.SP 05:39 → D.RAD 08:00 → D.SP 10:43 → D.EDHOLD 10:43 → D.SP 10:50
PROVIDERS: ATTEND General Practice
DX: I70.1 Atherosclerosis of renal artery (principal); Z53.9 Procedure and treatment not carried out, unspecified reason; I10 Essential (primary) hypertension

== ENCOUNTER 2019-09-29 10:52 | Inpatient (IN) | payer MEDICARE, OTHER ==
[~2019-09-29] VITALS: Ht 172.7 cm; Wt 73.9 kg
--- NOTE | ~2019-09-29 | HEMODYNAMI ---
PATIENT:ARMIDA LINDA MEDICAL RECORD: [id number] : 50 LOCATION:[place] [address] ADMISSION DATE: 09/29/19 Generatedon:09/30/201913:33 Patient name: ARMIDA LINDA Patient #: [id number] SSN: : 1950 Date of study: 09/30/2019 Page: Of Hemodynamic Procedure Report Patient Data Patient Demographics Procedure consent was obtained First Name: ARMIDA Gender: Male Last Name: ALEXEI : 1950 Middle Initial: JOHNNIE Age: 69 year(s) Patient #: [id number] Race: Unknown Additional ID: [id number] Contact details Address: [address] [place] [address] State: [place] City: [place] Zip code: [address] Past Medical History Allergies: No known allergies Admission Admission Data Admission Date: 09/29/2019 Admission Time: 15:14 Room #: [facility] Height (in.): 68 BSA: 1.87 (m2) Height (cm.): 172.72 BMI: 24.78 (kg/m2) Weight (lbs.): 163 Weight (kg.): 73.94 Procedure Procedure Types Cath Procedure Peripheral Cath Diagnostic Procedure Commercial Credit Officer Peripheral Procedures Abd/Extremity Renal Bilat Renal Arteriogram Venography Procedure Description Procedure Date Procedure Date: 09/30/2019 Procedure Start Time: 11:41 Procedure Staff Name Function Lexa Moyer MD Performing Physician Brigette Hernandez RT Electronic Field Service Engineer Toshia Monteiro RN Nurse Xin Leigh RN Nurse Miguel Hahn RT Scrub Procedure Data Cath Procedure Fluoroscopy Diagnostic fluoroscopy Total fluoroscopy Time: time: 20.3 min 20.3 min Diagnostic fluoroscopy Total fluoroscopy dose: dose: 1192 mGy 1192 mGy Contrast Material Contrast Material Type Amount (ml) Isovue 300 105 Entry Location Entry Primary Successful Side Size Upsize Upsize Entry Closure Succes sful Closure Location (Fr) 1 (Fr) 2 (Fr) Remarks Device Remarks Femoral Exoseal artery Diagnostic catheters Device Type Used For End Catheter Placement Angiodynamics SOS OMNI 2 NON B 5FR 65CM catheter ([id number]) Merit 5Fr Mikaless catheter (541225) Procedure Medications Medication Administration Route Dosage Heparin Flush Bag added to field 3 bags (1000units/500ml NS) Lidocaine 1% added to field 20 Heparin Bolus 5000 units Hemodynamics Rest BSA: 1.87 (m2) O2 Consumption: Estimated: 207.03 (ml/min) O2 Consumption indexed : Estimated:110.71 (ml/min/m) Heart Rate: 56 (bpm) Snapshots Pre Cath Intra NCS Post Cath Vital Signs Time Heart Resp SPO2 etCO2 NIBP (mmHg) Rhythm Pain Sedation Rate (ipm) (%) (mmHg) Status Level (bpm) 11:24:53 60 5 99 26.9 157/78(125) NSR 0 (11) 10(A) , No pain 11:29:09 63 11 99 29.9 156/75(131) NSR 0 (11) 10(A) , No pain 11:33:27 63 11 98 33.6 143/69(113) NSR 0 (11) 10(A) , No pain 11:37:41 63 10 97 36.6 136/71(104) NSR 0 (11) 10(A) , No pain 11:41:53 62 9 97 38.1 135/67(101) NSR 0 (11) 10(A) , No pain 11:46:07 62 9 97 38.1 126/63(97) NSR 0 (11) 10(A) , No pain 11:50:17 62 11 97 39.6 118/61(92) NSR 0 (11) 10(A) , No pain 11:54:25 62 10 97 41.9 120/62(87) NSR 0 (11) 10(A) , No pain 11:58:32 60 9 97 44.1 130/62(108) NSR 0 (11) 10(A) , No pain 12:02:47 61 9 97 42.6 112/56(90) NSR 0 (11) 10(A) , No pain 12:06:54 60 10 97 50.8 106/53(84) NSR 0 (11) 10(A) , No pain 12:11:00 61 9 97 54.6 102/52(70) NSR 0 (11) 10(A) , No pain 12:15:04 61 8 97 55.3 98/53(72) NSR 0 (11) 10(A) , No pain 12:19:07 61 9 97 59.1 96/50(76) NSR 0 (11) 10(A) , No pain 12:23:11 61 8 97 57.6 93/49(69) NSR 0 (11) 10(A) , No pain 12:27:13 61 8 97 56.8 92/51(81) NSR 0 (11) 10(A) , No pain 12:31:12 60 8 97 106/54(81) NSR 0 (11) 10(A) , No pain 12:35:16 61 8 97 113/58(80) NSR 0 (11) 10(A) , No pain 12:39:24 63 9 97 119/56(90) NSR 0 (11) 10(A) , No pain 12:43:50 60 8 97 103/50(90) NSR 0 (11) 10(A) , No pain 12:47:54 62 9 97 104/55(78) NSR 0 (11) 10(A) , No pain 12:51:58 61 10 97 102/55(75) NSR 0 (11) 10(A) , No pain 12:56:02 61 9 96 109/57(80) NSR 0 (11) 10(A) , No pain 13:00:07 60 8 97 112/58(84) NSR 0 (11) 10(A) , No pain 13:04:15 60 8 97 109/56(83) NSR 0 (11) 10(A) , No pain 13:08:19 59 8 97 45.6 115/59(92) NSR 0 (11) 10(A) , No pain 13:12:27 59 9 96 42.6 120/60(86) NSR 0 (11) 10(A) , No pain 13:16:33 60 9 96 37.3 130/66(97) NSR 0 (11) 10(A) , No pain 13:20:45 56 9 96 35.1 129/60(95) NSR 0 (11) 10(A) , No pain 13:24:56 56 11 96 31.3 125/65(101) NSR 0 (11) 10(A) , No pain 13:29:02 59 16 96 0 135/66(105) NSR 0 (11) 10(A) , No pain Medications Time Medication Route Dose Verified Delivered Reason Notes Effe ctiveness by by 11:23:30 Heparin Flush added 3 Lexa Lindquist used for Bag to bags João Moyer MD procedure (1000units/500ml field SARAH NS) 11:23:41 Lidocaine 1% added 20ml Lexa Lindquist for local to vial João Moyer MD anesthetic field SARAH 12:31:32 Heparin Bolus 5000 Lexa Toshia used for units Cayetano Moyer business account leader MD Procedure Log Time Note 10:34:54 Patient Height : 68 inches 10:35:01 Patient Weight : 163 lbs 11:07:34 Use device set IR Diagnostic 11:11:13 Time tracking: Regular hours (M-F 7:00 - 5:00) 11:11:32 Plan of Care:Hemodynamics will remain stable., Cardiac rhythm will remain stable., Comfort level will be maintained., Respiratory function will remain adequate., Patient/ family verbilizes understanding of procedure., Procedure tolerated without complication., Recovers from procedure without complications.. 11:11:43 Patient received from paymio II to IR Alert and oriented. Tansferred to table in Supine position. 11:11:46 Signed procedure consent form obtained from patient. 11:12:02 H&P Date Dictated: 09/30/2019 Within 30 days and on chart., H&P Addendum completed by physician on day of procedure. (MUST COMPLETE FOR ALL OUTPATIENTS). 11:12:05 Pre-procedure instructions explained to patient. 11:12:05 Pre-op teaching completed and patient verbalized understanding. 11:12:07 Family in waiting room. 11:12:10 Patient NPO since Midnight. 11:12:19 Patient allergic to No known allergies 11:12:24 Is the patient allergic to Iodine/contrast media? No. 11:12:32 Patient diabetic? No. 11:12:47 - 11:12:48 ----Pre-sedation anethsthesia assessment.----see anesthesia notes for monitoring of patient during procedure 11:13:18 - 11:23:30 Heparin Flush Bag (1000units/500ml NS) 3 bags added to field was administered by Lexa Moyer MD; used for procedure; Verbal order read back and verified. 11:23:30 Angiodynamics Omniflush 5Fr 65cm ([id number]) opened to sterile field. 11:23:31 Tegaderm 4 x 4 (1626W) opened to sterile field. 11:23:32 Sterile Angiographic Pack opened to sterile field. 11:23:33 Bag Decanter (2002) opened to sterile field. 11:23:34 ACIST Manifold (01801) opened to sterile field. 11:23:35 ACIST Hand Control (61540) opened to sterile field. 11:23:35 ACIST Syringe (50054) opened to sterile field. 11:23:36 DOC .035 wire (X01756) opened to sterile field. 11:23:38 Micropuncture VSI 4FR kit opened to sterile field. 11:23:39 TUBING Contrast Injection High Pressure (BPH353J) opened to sterile field. 11:23:40 SHEATH 5FR [place] (POM291) opened to sterile field. 11:23:41 Lidocaine 1% 20ml vial added to field was administered by Lexa Moyer MD; for local anesthetic; Verbal order read back and verified. 11:23:42 Vital chart was started 11:23:43 - 11:23:54 ECG and BP/O2 sat monitors applied to patient. 11::56 Baseline sample Acquired. :59 Full Disclosure recording started 11:24:00 - 11:40:34 Physician arrived 11:40:35 --------ALL STOP TIME OUT------ 11:40:36 Final Timeout: patient, procedure, and site verified with staff and physician. All members of the team are in agreement. :40:54 Fire Safety Assessment: A--An alcohol-based skin anteseptic being used preoperatively., C--Open oxygen or nitrous oxide is being used. 11:41:02 3a) 45-59 Moderately reduced kidney function. 11:41:35 Maximum allowable contrast dose (3.7 X eGFR X 0.75)127 ml. 11:41:46 Procedure started. 11:41:52 Local anesthetic to left femerol artery with Lidocaine 1% by Lexa Moyer MD.INITIAL ACCESS ONLY 11:49:51 GLIDE CATHETER 5FR ANGLED 65cm (CG507) opened to sterile field. 11:49:52 GLIDE WIRE ANGLE 180cm (ZI0399) opened to sterile field. 12:07:24 GLIDE CATHETER 5FR COBRA 65cm (CG502) opened to sterile field. 12:09:34 TUBING Contrast Injection High Pressure (DPQ079B) opened to sterile field. 12:10:51 A Angiodynamics SOS OMNI 2 NON B 5FR 65CM catheter ([id number]) was advanced over the wire and used for . 12:16:29 BENTSON 145cm wire (Z85543) opened to sterile field. 12:16:50 STOPCOCK 3-Way Large Bore (E15916) opened to sterile field. 12:19:34 A Merit 5Fr Mikaless catheter (318050) was advanced over the wire and used for . 12:26:46 CXI Catheter 90cm (I01860) opened to sterile field. 12:27:01 CASTREJON 260 wire (V52317) opened to sterile field. 12:27:02 Cook KIKO 1 6FR. Guide sheath opened to sterile field. 12:31:32 Heparin Bolus 5000 units was administered by Toshia Monteiro RN; used for procedure; Verbal order read back and verified. 12:32:07 INFLATOR BasixTOUCH (MU7007) opened to sterile field. 12:32:29 Inflate balloon Inflation number: 1 A Evercross 3 x 2 x 135 Balloon ([id number]) was prepped and advanced across the Undefined1 , then inflated to 0 TANNA for 0:00 (min:sec) . 12:40:11 a 6x27 x80 visi-pro stent was deployed in the left renal artery 12:49:27 BENTSON 145cm wire (E75138) opened to sterile field. 12:56:34 Place stent Inflation Number: 1 A Visipro 6 x 27 x 135 Stent ([id number]) was prepped and advanced across the Undefined2 . The stent was deployed at 0 TANNA for 0:00 (min:sec) . 13:08:25 SHEATH 6FR [place] (FIN054) opened to sterile field. 13:13:13 EXOSEAL 6Fr (EX600) opened to sterile field. 13:15:24 A sheath was inserted into the Femoral artery 13:15:24 Sheath removed intact; hemostasis achieved with Exoseal to the Femoral artery. 13:15:37 Procedure ended.(Physican Out) 13:15:52 Fluoroscopy time 20.30 minutes. 13:15:57 Fluoroscopy dose: 1192 mGy 13:15:57 Flurop Dose total: 1192 13:16:03 Contrast amount:Isovue 300 105ml. 13:16:05 Procedure and supply charges have been captured, reviewed, submitted an d are correct. 13:32:59 Vital chart was stopped Intervention Summary Intervention Notes Time ActionType Lesion and Equipment Used Action# Pressure Duration Attributes 12:32:29 Inflate Undefined1 Evercross 3 x 2 x 1 0 00:00 balloon 135 Balloon ([id number]) 12:56:34 Place stent Undefined2 Visipro 6 x 27 x 1 0 00:00 135 Stent ([id number]) Device Usage Item Name Manufacture Quantity Catalog Number Hospital Part Curr ent Minimal Lot# / Charge Number Stock Stock Serial# Code Angiodynamics Angiodynamics 1 [id number] 542764 095020 0169 04 5 Omniflush 5Fr 65cm (58960884) Tegaderm 4 x 4 3M 1 1626W 382648 045181 8920 60 5 (1626W) Sterile Cardinal 1 [id number] 068334 1228 43 5 Angiographic Pack Health Bag Decanter Microtek 1 715590 06060 9848 51 5 () Medical Inc. ACIST Manifold Acist Medical 1 46101 371884 906233 3059 80 5 (72908) Systems Inc ACIST Hand Acist Medical 1 79581 932727 811962 2961 64 5 Control (91026) Systems Inc ACIST Syringe Acist Medical 1 56848 337948 211550 6160 33 20 (16104) Systems Inc DOC .035 wire Saaspoint 1 D45258 339997 0631 98 5 (O39507) Micropuncture VSI VSI VASCULAR 1 7266V 221084 5019 05 5 4FR kit SOLUTIONS TUBING Contrast [facility] Medical 2 PMU124W 561604 699420 1210 54 5 Injection High Pressure (NNG045T) SHEATH 5FR Terumo 1 ART437 089432 118670 0302 98 5 [place] (KQQ960) GLIDE CATHETER Terumo 1 CG507 605239 0811 33 5 5FR ANGLED 65cm (CG507) GLIDE WIRE ANGLE Terumo 1 AB0267 120996 790085 4150 30 5 180cm (HQ6202) GLIDE CATHETER Terumo 1 CG502 335342 4885 02 5 5FR COBRA 65cm (CG502) Angiodynamics SOS Angiodynamics 1 71131137 666835 88408 9998 97 5 OMNI 2 NON B 5FR 65CM catheter (95504974) BENTSON 145cm Saaspoint 2 D98486 911313 6237 93 5 wire (W21061) STOPCOCK 3-Way Likez [facility] 1 Q83543 242151 8743 9996 78 5 Large Bore (U29444) Merit 5Fr Sharely.Us 1 856307 370736 1138 90 5 Mikaless catheter (360808) CXI Catheter 90cm Saaspoint 1 W65555 393497 505717 0171 83 5 (A98245) CASTREJON 260 wire Cook Medical 1 R02075 675562 62378 9994 76 5 [id number] (H25035) Cook KIKO 1 6FR. Likez Medical 1 B53899 582658 3011 64 5 5901304 Guide sheath INFLATOR [facility] Medical 1 SY1581 979675 951725 3671 62 5 BasixTOUCH (IK4864) Evercross 3 x 2 x Medtronic 1 [id number] 169082 590488 8734 92 5 135 Balloon ([id number]) Visipro 6 x 27 x Medtronic 1 [id number] 973100 855531 4986 95 5 [id number] 135 Stent ([id number]) SHEATH 6FR Terumo 1 TIP810 038888 176560 9115 84 40 [place] (WPG784) EXOSEAL 6Fr Cardinal 1 EX600 569463 550509 9422 76 10 [id number] (EX600) Health Signature Audit Portal Stage Time Signature Unsigned Intra-Procedure 09/30/2019 Brigette Hernandez 1:32:56 PM RT(R) [facility] [address] [place] [address]
--- NOTE | ~2019-09-29 | HP ---
PATIENT: ARMIDA LINDA MEDICAL RECORD: [id number] ACCOUNT: [id number] LOCATION:[place] : 50 ADMISSION DATE: 09/29/19 PCP: [facility] [facility] HISTORY AND PHYSICAL EXAMINATION ADMITTING DIAGNOSES: 1. Out of control hypertension. 2. Essential hypertension. 3. Shortness of breath. 4. Renal artery stenosis. HISTORY OF PRESENT ILLNESS: This is a gentleman who is on multiple blood pressure agents, who has had out of control hypertension. He had a CAT scan at [place] showing renal artery stenosis. He was set for a radiology procedure here; however, they did not proceed with the procedure due to his systolic blood pressure greater than 200. This is not new for him. He was on Bystolic, hydrochlorothiazide as well as Norvasc for the blood pressure. His only cardiac symptomatology is shortness of breath. He is not having any chest pain or chest discomfort. PHYSICAL EXAMINATION: CONSTITUTIONAL/GENERAL APPEARANCE: Well nourished, well developed, appears stated age. EYES: Lids and conjunctivae noninjected. No discharge. No pallor. ENT: Lips within normal limit. No cyanosis. No pallor. NECK: Carotid arteries, bilateral normal upstroke. No bruits. No thrills. No jugular venous pressure or distention. CERVICAL LYMPH NODES: Nontender. Nonenlarged. THYROID: Not enlarged. No nodules. CARDIOVASCULAR: Precordial exam, nondisplaced. No heaves or pericardial thrills. Rate and rhythm, regular. Heart sounds, normal S1, normal S2. No S3, no gallop, no rub. Systolic murmur, not heard. Diastolic murmur, not heard. RESPIRATORY: Respiratory effort, unlabored. Normal curvature. No thoracic deformity. No chest wall tenderness. Percussion, resonant. Auscultation, clear. No wheezes, no rales, no rhonchi. ABDOMEN: Soft, nondistended, nontender. No abdominal pain, no vomiting and normal appetite. MUSCULOSKELETAL: No joint tenderness, normal gait, normal tone. SKIN: Warm and dry. OVERALL IMPRESSION: Uncontrolled hypertension. At this time, we will discontinue the Norvasc. Start Procardia-XL. We will use clonidine 0.2 in the acute setting. He should not need any IV medications and will proceed with renal angiography in the a.m. TRANSINT:[id number] Voice Confirmation ID: [id number] DOCUMENT ID: [id number] HISTORY AND PHYSICAL [id number] ARMIDA LINDA JEFFREY MD CC: [id number] DICTATION DATE: 09/29/19 112 WORK TICKET DISTRIBUTOR: 09/29/19 1202 [facility] [address] [place] [address]
--- NOTE | ~2019-09-29 | EC ---
PATIENT:ARMIDA LINDA DATE OF SERVICE: 09/29/19 SEX: M MEDICAL RECORD: [id number] DATE OF : 50 LOCATION:D.M2 D.211 AGE OF PATIENT: 69 ADMISSION DATE: 09/29/19 REFERRING PHYSICIAN: INTERPRETING PHYSICIAN: DALTON ISAAC MD ECHOCARDIOGRAM REPORT ECHO CHARGES 4 ECHO COMPLETE Date: 09/29/19 CLINICAL DIAGNOSIS: SOB ECHOCARDIOGRAPHIC MEASUREMENTS (adult normal given) AC root (d.<3.7cm) 3.7 cm LV Septum d (<1.2 cm> 1.6 cm Valve Excursion 1.5 cm LV Septum (systole) 1.9 cm Left Atria (s.<4.0cm> 3.8 cm LVPW d(<1.2cm) 1.8 cm RV (d.<2.3cm) 3.7 cm LVPW (sytole) 2.1 cm LV diastole(<5.6CM) 4.3 cm MV E-F(>70mm/sec) cm LV systole 3.0 cm LVOT Diameter 2.0 cm MV exc.(>10mm) 0.80 cm Est.ejection fraction (50-75%) % DOPPLER: LVIT cm/sec A 99.0 cm/sec E 67.0 cm/sec LA cm/sec RVSP 16 mmHg LVOT 76 cm/sec AOP1/2T m/s Asc. Ao 135 cm/sec RVOT 62 cm/sec RA cm/sec PA 99 cm/sec AV Gradient Peak 7.32 mmHg AV Mean 4.31 mmHg AV Area 2.0 cm MV Gradient Peak 5.20 mmHg MV Mean 2.18 mmHg MV Area cm COMMENTS: Information Assistant: Keagan FAYE Associate Professor Of Physics: 1 Dr. Isaac TAPE# PACS Pericardial Effusion N DATE OF SERVICE: ECHOCARDIOGRAM FINDINGS: 1. Left ventricular chamber size is within normal limits. Left ventricular systolic function is normal at 60% to 65%. 2. Left atrium, right atrium, and right ventricular chamber sizes are within normal limits. 3. Valvular structures have normal structure and motion. ECHOCARDIOGRAM REPORT [id number] ARMIDA LINDA 4. Doppler interrogation reveals no significant valvular insufficiency or stenosis and pulmonary systolic pressure is estimated 16 mmHg. 5. No evidence of pericardial effusion or left ventricular thrombus. TRANSINT:[id number] Voice Confirmation ID: [id number] DOCUMENT ID: [id number] DALTON ISAAC MD CC: [id number] DICTATION DATE: 09/29/19 164 LOG HAUL CHAIN FEEDER: 09/30/197 ADM IN [facility] [address] [place] [id number]
[~2019-09-29 10:52] MED LIST changes: +BAYER CHEWABLE81 MG PO; +HYDROCHLOROTHIA50 MG PO; +VITAMIN D10000 UNI1 PO
[2019-09-29 12:00] LABS: CKMB 1.2 U/L (0.0-3.6); CREATINE KINASE 128 UL (21-232); MAGNESIUM - SERUM 2.2 mg/dL (1.8-2.4); TROPONIN-I < 0.017 ng/mL (0.000-0.060)
[2019-09-29 15:47] VITALS: BP 144/69
[2019-09-29] MEDS ORDERED: NORVASC10 MG PO (15:52)
[2019-09-29] MEDS ORDERED: HYDRALAZINE HC100 MG PO (15:53)
[2019-09-29 16:09] VITALS: BP 144/68; Ht 172.7 cm; Wt 73.9 kg
[2019-09-29 20:00] VITALS: BP 141/70
[2019-09-30 00:55] VITALS: BP 148/67
[2019-09-30 04:42] VITALS: BP 154/66
[2019-09-30 07:13] LABS: APTT 36.4 SECONDS (22.8-39.4); INR 1.02 (0.85-1.17); PROTIME 13.4 SECONDS (11.6-15.0)
[2019-09-30 07:14] LABS: ANION GAP 11.3 mmol/L (8-16); CALCIUM 8.5 mg/dL (8.5-10.1); CARBON DIOXIDE 26.3 mmol/L (21.0-32.0); CREATININE - SERUM 1.6 mg/dL (0.6-1.3)
[2019-09-30 07:17] LABS: POTASSIUM - SERUM 3.6 mmol/L (3.5-5.1)
[2019-09-30 07:18] LABS: BASOPHILS 0.5 % (0-2); HEMATOCRIT 44.5 % (42.0-54.0); HEMOGLOBIN 15.1 g/dL (13.5-17.5); IMMATURE GRANULOCYTES 0.2 % (0-5); MCH 28.8 pg (26.0-34.0); MCHC 33.9 g/dL (31.0-37.0); MCV 84.8 fL (80.0-100.0); MEAN PLATELET VOLUME 9.6 fL (7.4-10.4); MONOCYTES 10.8 % (2-11); NEUTROPHILS 68.5 % (40-80); PLATELET COUNT 159 10x3/uL (130-400); RBC 5.25 10x6/uL (4.20-6.10); RDW 13.9 % (11.5-14.5); WBC 5.9 10x3/uL (4.8-10.8)
[2019-09-30 09:11] LABS: BILIRUBIN NEGATIVE (NEGATIVE); GLUCOSE NEGATIVE (NEGATIVE); KETONE NEGATIVE (NEGATIVE); NITRITE NEGATIVE (NEGATIVE); SPECIFIC GRAVITY 1.015 (1.005-1.020); UROBILINOGEN NORMAL (NORMAL)
[2019-09-30 09:58] VITALS: BP 182/78
[2019-09-30] MEDS ORDERED: PROCARDIA XL60 MG PO (14:51)
--- NOTE | 2019-10-01 08:40 | MORECARE ---
CASE MANAGEMENT DISCHARGE SUMMARY PATIENT: ARMIDA LINDA UNIT: [id number] ADM DATE: 09/29/19 AGE: 69 : 50 SEX: M ROOM/BED: D.2117 AUTHOR: HONG SHEPARD PHYSICIAN: REFERRING PHYSICIAN: DALTON PLASENCIA MD DATE OF SERVICE: 10/01/19 Discharge Plan Patient Name: ARMIDA LINDA [facility] [facility] 1950 Planned Disposition: Home Anticipated Discharge Date: 09/30/19 Discharge Date: 09/30/2019 Expected LOS: 1 Initial Reviewer: [email or web address] Initial Review Date: 10/01/2019 Generated: 10/01/19 9:40 am Patient Name: ARMIDA LINDA Page 56869 at 0840 All edits/amendments must be made on the electronic document DICTATION DATE: 10/01/19 0840 KNEE BOLTER: HARVEY 10/01/19 0840 RPT#: [id number] DC DATE:09/30/19 STATUS: DIS IN [facility] [address] [facility] [place] [address] END OF REPORT
== END 2019-09-30 18:13 | disposition home or self-care (01) | DRG 675 ==
LOC: D.M2 10:52 → D.ER 10:52 → D.M2 13:36 → EDSTATUS 13:38 → D.M2 15:13
PROVIDERS: Family Medicine; General Practice; ADMIT Internal Medicine Interventional Cardiology; ATTEND Internal Medicine Interventional Cardiology
PROC: 04793DZ Dilation of Right Renal Artery with Intraluminal Device, Percutaneous Approach (ICD-10-PCS; 2019-09-30)
PROC: 047A3DZ Dilation of Left Renal Artery with Intraluminal Device, Percutaneous Approach (ICD-10-PCS; principal; 2019-09-30 11:15)
DX: I70.1 Atherosclerosis of renal artery (principal); I12.9 Hypertensive chronic kidney disease with stage 1 through stage 4 chronic kidney disease, or unspecified chronic kidney disease; N18.3 Chronic kidney disease, stage 3 (moderate)

== ENCOUNTER → 2019-10-09 13:15 | Outpatient (CLI) | payer MEDICARE, OTHER ==
[2019-09-29 16:09] VITALS: BMI 25.8
[~2019-10-09 13:15] MED LIST changes: +HYDRALAZINE HC100 MG PO; +PROCARDIA XL60 MG PO
[2019-10-09 14:13] LABS: HEMATOCRIT 47.3 % (42.0-54.0); HEMOGLOBIN 15.8 g/dL (13.5-17.5); MCHC 33.4 g/dL (31.0-37.0); MCV 86.8 fL (80.0-100.0); MEAN PLATELET VOLUME 9.1 fL (7.4-10.4); RBC 5.45 10x6/uL (4.20-6.10); RDW 14.1 % (11.5-14.5); WBC 5.2 10x3/uL (4.8-10.8)
[2019-10-09 14:15] LABS: ANION GAP 11.1 mmol/L (8-16); CALCIUM 8.7 mg/dL (8.5-10.1); CARBON DIOXIDE 27.9 mmol/L (21.0-32.0); CREATININE - SERUM 1.2 mg/dL (0.6-1.3)
== END | disposition home or self-care (01) ==
LOC: D.LAB 13:15
PROVIDERS: ATTEND Internal Medicine Cardiovascular Disease
DX: I71.4 Abdominal aortic aneurysm, without rupture (principal); I70.213 Atherosclerosis of native arteries of extremities with intermittent claudication, bilateral legs; I73.9 Peripheral vascular disease, unspecified; I70.1 Atherosclerosis of renal artery; Q27.1 Congenital renal artery stenosis

== ENCOUNTER 2019-12-10 09:56 | Inpatient (IN) | payer MEDICARE, OTHER ==
[~2019-12-10] VITALS: Ht 172.7 cm; Wt 74.0 kg
--- NOTE | ~2019-12-10 | OP ---
PATIENT NAME: ARMIDA LINDA MEDICAL RECORD: [id number] :50 LOCATION:DAMBER [id number] ADMISSION DATE:12/16/19 SURGEON: MJ MORA MD DATE OF OPERATION: 12/16/2019 SURGEON: Mj Mora MD ANESTHESIA: General endotracheal, Dr. Kim. OPERATION PERFORMED: 1. Open femoral artery exposure bilaterally, +[id number]. 2. Endovascular stent repair of saccular abdominal aortic aneurysm, 20759. 3. Distal extension beyond the target site, left iliac, 69431. 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 POSTOPERATIVE DIAGNOSES: Saccular abdominal aortic aneurysm, stenosis of the right common iliac artery, plus distal false aneurysm, left distal common iliac artery. INDICATION FOR OPERATION: Saccular abdominal aortic aneurysm and claudication of the lower extremities bilaterally due to atherosclerosis of the iliac vessels. FINDINGS OF THE OPERATION: The abdominal aorta, saccular abdominal aortic aneurysm below the renal arteries. After placement of the stent graft, arteriogram demonstrated a false aneurysm distal at the takeoff of the hypogastric artery on the left. Post-procedure, the aneurysm of the abdominal aorta and dilatation of the iliac arteries bilaterally demonstrate no leak and good flow through the graft. ESTIMATED BLOOD LOSS: Less than 150 mL. FLUOROSCOPY TIME: 1122 seconds. CONTRAST: 120 mL of Isovue. DESCRIPTION OF PROCEDURE: After informed consent, adequate preoperative medication evaluation, the patient was brought to the operating room, placed in supine position. After induction of general endotracheal anesthesia and application of appropriate monitoring devices, the chest, abdomen and legs were prepped and draped in a sterile field, utilizing Betadine scrub, alcohol, and Betadine solution. Betadine-impregnated drape was also used. After timeout, the left groin was addressed first. An oblique incision was made above the inguinal ligament. Dissection carried down the fascia. Hemostasis maintained with electrocautery. The femoral artery was dissected free of surrounding structures and surrounded with vessel loops. The branches were also surrounded with vessel loops. Attention was then turned toward the right groin. An incision was made over the right groin above the inguinal ligament obliquely and dissection carried down the fascia. Hemostasis maintained with electrocautery. The common femoral and its branches were dissected free of surrounding structures as well as the distal iliac artery. The patient was given a calculated dose of heparin. Utilizing micropuncture techniques bilaterally, a OPERATIVE REPORT [id number] ARMIDA LINAD 7-Malian sheath was placed on the right and a 5-Malian sheath placed on the left. Utilizing Glidewires, the aorta was accessed. Exchange was made for a stiff wire on the left. Attention was then turned toward the right groin and a snare catheter would not pass through the iliac. Therefore, utilizing a 7 x 40 mm balloon the right iliac artery was predilated and a snare catheter placed in the distal aorta. The bifurcated stent 28 x 80/120-40 was loaded onto the Lunderquist wire and advanced to the large sheath that had been placed for AFX device. The contralateral wire was then introduced into the sheath and snared from the right. The device was then advanced into the aorta and the contralateral limb and ipsilateral limb was seated on the bifurcation. The device was then deployed and removed. Attention was then turned toward the renal arteries and had bilateral stents. Therefore, the cuff was then introduced from the left and placed just below the renal arteries and deployed. This was an infrarenal cuff. The right contralateral wire was then placed with a pigtail catheter through the cuff and into the aorta. The limbs of the graft bilaterally were dilated with a 10 x 40 mm balloon and aortogram was then obtained that revealed no endoleaks and good placement of the infrarenal graft at the renal arteries. There was a false aneurysm noted in the left distal iliac artery and the patient had placement of a 16 x 45 Ovation extension. This was dilated with a 10 balloon. Repeat aortogram demonstrated good flow through the graft through both limbs of the graft into the iliac arteries bilaterally. The sheath wires and catheters were removed bilaterally and the femoral arteries were repaired with a primary technique utilizing 6-0 Prolene on the right and 2 layer 6-0 Prolene on the left. All maneuvers to remove trapped air were performed. There was no debris. There was good brisk backbleeding bilaterally. The arteries were secured. The patient was given a calculated dose of protamine to reverse the heparin. Hemostasis was achieved. Wounds were irrigated with copious amounts of antibiotic solution and normal saline. There was good Doppler flow through each distal femoral artery. Wounds were again irrigated. Instrument count and sponge count were correct times 2. The wound was closed in layers utilizing 3-0 Vicryl on deep subcutaneous tissue, 2-0 Vicryl on the more superficial subcutaneous tissue and Yady's fascia. Skin approximated with 5-0 subcuticular Monocryl. Sterile dressings were applied. The patient tolerated the procedure well and was transferred to the CV ICU in satisfactory condition. TRANSINT:[id number] Voice Confirmation ID: [id number] DOCUMENT ID: [id number] MJ MORA MD CC: [id number] DICTATION DATE: 12/16/19 1131 FINAL RAIL CUTTER: 12/16/19 1431 ADM IN [facility] [id number] [place] [address]
[2019-12-11 08:58] LABS: INR 0.96 (0.85-1.17); PROTIME 12.7 SECONDS (11.6-15.0)
[2019-12-11 08:59] LABS: APTT 32.7 SECONDS (22.8-39.4)
[2019-12-11 09:05] LABS: ALBUMIN 3.3 g/dL (3.4-5.0); ANION GAP 13.2 mmol/L (8-16); BILIRUBIN - TOTAL 0.18 mg/dL (0.2-1.3); CALCIUM 8.7 mg/dL (8.5-10.1); CARBON DIOXIDE 24.2 mmol/L (21.0-32.0); CREATININE - SERUM 1.2 mg/dL (0.6-1.3); POTASSIUM - SERUM 3.4 mmol/L (3.5-5.1); PROTEIN - SERUM 6.8 g/dL (6.4-8.2)
[2019-12-11 09:12] LABS: BASOPHILS 0.8 % (0-2); EOSINOPHILS 8.8 % (0-7); HEMATOCRIT 45.6 % (42.0-54.0); HEMOGLOBIN 14.5 g/dL (13.5-17.5); IMMATURE GRANULOCYTES 0.4 % (0-5); LYMPHOCYTES 27.7 % (15-50); MCH 28.8 pg (26.0-34.0); MCHC 31.8 g/dL (31.0-37.0); MCV 90.7 fL (80.0-100.0); MEAN PLATELET VOLUME 9.5 fL (7.4-10.4); NEUTROPHILS 48.3 % (40-80); PLATELET COUNT 182 10x3/uL (130-400); RBC 5.03 10x6/uL (4.20-6.10); RDW 15.2 % (11.5-14.5); WBC 4.8 10x3/uL (4.8-10.8)
--- NOTE | 2019-12-11 10:48 | NUR ---
1040-RETURNED FROM CTA. IV FLUIDS AT 150CC/HR PER PUMP. PO FLUIDS GIVEN.
[2019-12-11 11:00] LABS: BILIRUBIN NEGATIVE (NEGATIVE); GLUCOSE NEGATIVE (NEGATIVE); KETONE NEGATIVE (NEGATIVE); NITRITE NEGATIVE (NEGATIVE); UROBILINOGEN NORMAL (NORMAL)
--- NOTE | 2019-12-11 12:34 | NUR ---
1155-RETURNED TO ROOM 1200-VOIDS AND PASSING AIR 1215-TAKING LIQUIDS, IV D/C 1215-DR WISE HERE TO REPORT FINDING 1230-D/C HOME VIA WHEELCHAIR.
[2019-12-16] VITALS (49 sets, daily range): BP systolic 95–153; BP diastolic 56–118; BMI 24.3; BMI 22.7
--- NOTE | 2019-12-16 11:42 | NUR ---
PT RECIEVED FROM OR ALERT AND ORIENTED, SLIGHTLY DROWSY, O2 6L, L SUBCLAVIAN CVL DRESSING CDI, R RADIAL A LINE ZEROED WITH GOOD WAVEFORM WRIST PROTECTOR IN PLACE, BILAT GROIN INCISION SITES SOFT, NO SIGNS OF BLEEDING WITH DRESSING CDI, YOUSIF CATHETER DRAINING YELLOW URINE, [employer]ICATIONS SERGEANT INITIATED AND CALL LIGHT WITHIN REACH
--- NOTE | 2019-12-16 16:31 | NUR ---
1300 PT TOLERATING CLEAR LIQUIDS WITHOUT DIFFICULTY 1600 PTS UPDATED AND SPEAKING TO PT ON PHONE IN ROOM
--- NOTE | 2019-12-16 16:58 | NUR ---
DONNY AND YOUSIF CATHETER DCD PER PROTOCOL, TIP INTACT, PER DR JENARO SHAH TO SIT ON SIDE OF BED AND ASSISTED TO SIT AND EAT DINNER TRAY
--- NOTE | 2019-12-16 17:04 | NUR ---
HR DROPPING TO 57 BUT NOT SUSTAINTED, DR GARGWARE NO NEW ORDERS
--- NOTE | 2019-12-16 17:26 | NUR ---
PT ASSISTED BACK INTO BED, ATE 100% DINNER
--- NOTE | 2019-12-16 19:30 | NUR ---
REPORT RECEIVED, SHIFT ASSESSMENT COMPLETE PER FLOW SHEET, PT AAOx4, ANSWERES ALL QUESTIONS APPROPRIATLY, PT STATES SLIGHT DISCOMFORT IN LEFT GROIN RATED 4/10 ON NUMERIC PAIN SCALE, PULSES PALPABLE IN ALL EXTREMITIES, BILAT GROIN INCISION SITES AND DRSG'S C/D/I, NSR ON CM, OTHER VSS, CALL LIGHT IN REACH, BED ALARM ON, FALL PREVENTION TEACHING COMPLETED, WILL CONTINUE TO MONITOR
[2019-12-17] VITALS (31 sets, daily range): BP systolic 96–149; BP diastolic 57–75; Ht 172.7 cm; Wt 74.0 kg
--- NOTE | 2019-12-17 04:25 | NUR ---
PT ASSISTED TO BEDSIDE, URINAL USED, CLEAR YELLOW VOID NOTED, REPOSITIONED PT BACK IN BED FOR COMFORT, ELEVATED HOB, PT DENIES PAIN OR NEEDS AT THIS TIME, VSS, WILL CONTINUE TO MONITOR
--- NOTE | 2019-12-17 05:30 | NUR ---
PT ASSISTED TO BEDSIDE CHAIR, REPOSITIONED FOR COMFORT, DENIES FURTHER NEEDS, CALL LIGT IN REACH, VSS
[2019-12-17 05:56] LABS: HEMATOCRIT 38.2 % (42.0-54.0); HEMOGLOBIN 12.1 g/dL (13.5-17.5); MCH 28.6 pg (26.0-34.0); MCHC 31.7 g/dL (31.0-37.0); MCV 90.3 fL (80.0-100.0); MEAN PLATELET VOLUME 9.7 fL (7.4-10.4); RBC 4.23 10x6/uL (4.20-6.10); RDW 15.2 % (11.5-14.5); WBC 7.4 10x3/uL (4.8-10.8)
[2019-12-17 06:17] LABS: ANION GAP 9.9 mmol/L (8-16); CALCIUM 7.7 mg/dL (8.5-10.1); CARBON DIOXIDE 25.7 mmol/L (21.0-32.0); CREATININE - SERUM 1.1 mg/dL (0.6-1.3); POTASSIUM - SERUM 3.6 mmol/L (3.5-5.1)
--- NOTE | 2019-12-17 07:00 | NUR ---
AWAKES EASILY TO VERBAL STIMULI SKIN WARM AND DRY. BILATERAL FEMEROL DRESSING DRY AND INTACT. PEDAL PULSES PALABLE. DENIES PAIN. MONITOR SR. IV LEFT SUBCLAVIAN INFUSING WITH ZINCEF 11.4 ML HOUR, PLASMLYTE AT 100 ML HOUR. NO DISTRESS. OXYGEN DISCONTINUED.
--- NOTE | 2019-12-17 08:00 | NUR ---
BREAKFAST SERVED ATE WELL. AMBULATED TO BATHROOM. WITH MINIMAL ASSISTANCES. GAIT STEADY. NO DISTRESS NOTED
--- NOTE | 2019-12-17 09:30 | NUR ---
AMBULATED TO BATHROOM. TOLERATES WELL. ONLY NEEDS HELP WITH LINES. NO DISTRESS. DENIES SHORTNESS OF BREATH.
--- NOTE | 2019-12-17 10:31 | NUR ---
SITTING UP IN CHAIR. NO DISTRESS.
--- NOTE | 2019-12-17 11:11 | NUR ---
AMBULATED TO BATHROOM. GOOD GAIT. NO DISTRESS.
--- NOTE | 2019-12-17 12:09 | NUR ---
AMBULATED TO BATHROOM. TOLERATES WELL. LUNCH TRAY SERVED NO DISTRESS
--- NOTE | 2019-12-17 12:15 | NUR ---
DR. EASON HERE
[2019-12-17] MEDS ORDERED: HYDROCODON-ACE1 EA10 PO (12:35)
--- NOTE | 2019-12-17 12:43 | NUR ---
AMBULATING IN [facility] WITH PHYSICAL THERAPY
--- NOTE | 2019-12-17 17:59 | MORECARE ---
CASE MANAGEMENT DISCHARGE SUMMARY PATIENT: ARMIDA LINDA UNIT: [id number] ADM DATE: 12/16/19 AGE: 69 : 50 SEX: M ROOM/BED: D.[facility] AUTHOR: HONG SHEPARD PHYSICIAN: REFERRING PHYSICIAN: JOHNNIE EASON MD DATE OF SERVICE: 12/17/19 Discharge Plan Patient Name: ARMIDA LINDA [facility] [facility] 1950 Planned Disposition: Home Anticipated Discharge Date: Discharge Date: 12/17/2019 Expected LOS: Initial Reviewer: [email or web address] Initial Review Date: 12/16/2019 Generated: 12/17/19 6:58 pm DCPIA - Discharge Planning Initial Assessment Updated by [email or web address]: Marita Stoddard on 12/17/19 5:57 pm * Is the patient Alert and Oriented? Yes * How many steps to enter\exit or inside your home? * PCP ED SANTANA * Pharmacy [facility] * Preadmission Environment Home with Family * ADLs Independent * Equipment None * List name and contact numbers for known caregivers / representatives who currently or will assist patient after discharge: BRIAN LINDA -SPOUSE- [phone] * Verbal permission to speak to the caregivers and representatives has been obtained from the patient. Yes * Community resources currently utilized None * Additional services required to return to the preadmission environment? No * Can the patient safely return to the preadmission environment? Yes * Has this patient been hospitalized within the prior 30 days at any hospital? No Patient Name: ARMIDA LINDA Page 43110 at 1759 All edits/amendments must be made on the electronic document DICTATION DATE: 12/17/191757 SLITTER CREASER SLOTTER HELPER: HARVEY 12/17/191757 RPT#: [id number] DC DATE:12/17/19 STATUS: DIS IN [facility] [address] [place] [address] END OF REPORT
--- NOTE | 2019-12-17 18:11 | MORECARE ---
CASE MANAGEMENT DISCHARGE SUMMARY PATIENT: ARMIDA LINDA UNIT: [id number] ADM DATE: 12/16/19 AGE: 69 : 50 SEX: M ROOM/BED: D.[facility] AUTHOR: DEVYN,DOC PHYSICIAN: REFERRING PHYSICIAN: JOHNNIE EASON MD DATE OF SERVICE: 12/17/19 Discharge Plan Patient Name: ARMIDA LINDA Facility: [facility]:[place] : 1950 Planned Disposition: Home Anticipated Discharge Date: Discharge Date: 12/17/2019 Expected LOS: Initial Reviewer: [email or web address] Initial Review Date: 12/16/2019 Generated: 12/17/19 7:11 pm Comments DCP- Discharge Planning Updated by [email or web address]: Marita Stoddard on 12/17/19 5:[address] Patient Name: ARMIDA LINDA Admission Status: Elective Accout number: [id number] Admission Date: 12-16-2019 : 1950 Admission Diagnosis: Attending: JOHNNIE EASON Current LOS: 1 Anticipated DC Date: Planned Disposition: Home Primary Insurance: MEDICARE A & B Discharge Planning Comments: CM met with patient at bedside after explaining CM role and obtaining verbal consent. Patient lives at home with his where he is independent with his care and plans to return there upon discharge. Patient feels this would be a safe discharge. CM discussed availability / needs of home health and medical equipment. Patient denies any discharge needs at this time. Patient states he will have his family drive him home upon discharge. CM will continue to follow and assist as needed with discharge planning / needs. D/C IMM SIGNED 12/17/19 @ 1209 Home Health Speech Therapist: Marita Stoddard DCPIA - Discharge Planning Initial Assessment Updated by [email or web address]: Marita Stoddard on 12/17/19 5:57 pm * Is the patient Alert and Oriented? Yes * How many steps to enter\exit or inside your home? * PCP ED SANTANA * [facility]acy [facility] * Preadmission Environment Home with Family * ADLs Independent * Equipment None * List name and contact numbers for known caregivers / representatives who currently or will assist patient after discharge: BRIAN LINDA -SPOUSE- [phone] * Verbal permission to speak to the caregivers and representatives has been obtained from the patient. Yes * Community resources currently utilized None * Additional services required to return to the preadmission environment? No * Can the patient safely return to the preadmission environment? Yes * Has this patient been hospitalized within the prior 30 days at any hospital? No Last DP export: 12/17/19 4:59 p Patient Name: ARMIDA LINDA Page 13595 at 1811 All edits/amendments must be made on the electronic document DICTATION DATE: 12/17/191810 DEPUTY PROBATION OFFICER: HARVEY 12/17/191810 RPT#: [id number] DC DATE:12/17/19 STATUS: DIS IN [facility] [address] [place] [address] END OF REPORT
== END 2019-12-17 13:24 | disposition home or self-care (01) | DRG 269 ==
LOC: D.SDCHOLD 12-11 07:45 → D.CVICU 12-16 09:59
PROVIDERS: ADMIT Internal Medicine Cardiovascular Disease; ATTEND Internal Medicine Cardiovascular Disease
PROC: 04V03DZ Restriction of Abdominal Aorta with Intraluminal Device, Percutaneous Approach (ICD-10-PCS; principal; 2019-12-16 08:00)
DX: I71.4 Abdominal aortic aneurysm, without rupture (principal); I70.213 Atherosclerosis of native arteries of extremities with intermittent claudication, bilateral legs; L40.50 Arthropathic psoriasis, unspecified; I12.9 Hypertensive chronic kidney disease with stage 1 through stage 4 chronic kidney disease, or unspecified chronic kidney disease; N18.9 Chronic kidney disease, unspecified

== ENCOUNTER → 2020-01-14 07:30 | Outpatient (CLI) | payer MEDICARE, OTHER ==
[2019-12-17 11:05] VITALS: BMI 24.8
[~2020-01-14 07:30] MED LIST changes: +HYDROCODON-ACE1 EA10 PO
== END | disposition home or self-care (01) ==
LOC: D.CT 07:30
PROVIDERS: ATTEND General Practice
DX: I70.1 Atherosclerosis of renal artery (principal)